=== PATIENT | female | born 1995 | race Caucasian/White ===

== ENCOUNTER 2022-06-18 09:14 | Emergency (ER) | payer OTHER, MEDICAID, SELFPAY ==
[2022-06-18 09:24] VITALS: BP 115/78; PULSE 76; RESP 16; TEMP 36.3; O2SAT 100; BMI 27.4
--- NOTE | 2022-06-18 09:48 | ED_ITS ---
HPI - General Adult General Chief complaint: Fall/Minor Trauma Stated complaint: Fell hit head, 17 weeks Time Seen by Provider: 06/18/22 09:25 Source: patient Mode of arrival: ambulatory Limitations: no limitations History of Present Illness HPI narrative: 26-year-old female coming in today after suffering from a fall. She got out of her car on the way to work in this morning approximately 1 hour and half ago, she slipped and fell backwards falling on her back and hitting her head on the ground. She states that she got up immediately and went into work. She denies headache, blurry vision, dizziness, difficulty concentrating. She denies nausea or vomiting. No changes in her speech. She does state that her low back is a little sore, but this has not prevented her from doing any of her daily a ctivities. She presents to the ER today because she is about 17 weeks and she wants to make sure that the baby is okay. She has not felt consistent movement of the baby since the beginning of her , she just feels a little movement here in there. This is not changed. She denies any abdominal pain or cramping. No vaginal discharge or bleeding. Related Data Home Medications Medication Instructions Recorded Confirmed escitalopram oxalate 20 mg tablet 40 mg PO DAILY 06/18/22 06/18/22 levothyroxine 75 mcg tablet PO 06/18/22 Allergies Allergy/AdvReac Type Severity Reaction Status Date / Time cephapirin [From Cefadyl] Allergy Verified 06/18/22 09:30 Sulfa (Sulfonamide Allergy Verified 06/18/22 09:30 Antibiotics) Review of Systems Status of ROS: Reports: 10 or more systems reviewed and unremarkable except as noted in History and below Exam Narrative: Exam Narrative: Well-nourished well-developed patient in no acute distress. Alert and oriented. Answers questions appropriately. Mood and affect are appropriate. Thoughts are goal oriented and rational. No tangential or magical thinking noted. Patient speaks in full sentences without needing to catch their breath. GCS is 15. She is breathing and speaking without difficulty. There is no visible bleeding. HEENT: Normocephalic atraumatic. I do not see any evidence of a hematoma, ecchymosis erythema of the scalp. There are no tender spots. No crepitus appreciated. Pupils are equally round reactive to light. Extraocular muscles are intact. Conjunctivae are moist without any icterus noted. Neck is soft without discomfort. She has no tenderness to palpation at the cervical spine. She has full range of motion at the neck with flexion, extension, side way bending and rotation. Cardiovascular: Heart is regular rate and rhythm S1 and S2 are present without any murmurs. Lungs: Clear to auscultation bilaterally no wheezes rhonchi or rales are appreciated. Patient takes deep breaths without any discomfort. Abdomen: Soft and nontender nondistended with normal bowel sounds. No guarding or rebound. Extremities: Bilateral lower extremities are without edema. Skin: Well perfused without any obvious rashes. Back: Has normal appearance. There is no ecchymosis or erythema noted. She has no tenderness to palpation at the thoracic or lumbar spine. No tenderness to palpation of the paraspinal musculature. Const: Vital Signs, click to edit/add: Vital Signs - 24 hr 06/18/22 09:24 Temperature 97.4 F L Pulse Rate [Left P ulse Oximeter] 76 Respiratory Rate 16 Blood Pressure [Le ft Upper Arm] 115/78 Pulse Oximetry 100 Oxygen Delivery Me thod Room Air Course Course Hospital Course: Doppler was done of the fetus, heart rate appreciated at 143 beats per minute. Vital Signs Vital signs: Initial Vital Signs Temperature 97.4 F L 06/18/22 09:24 Temperature Source Temporal Artery Scan 06/18/22 09:24 Pulse Rate 76 06/18/22 09:24 Pulse Rhythm 06/18/22 09:24 Pulse Strength 3+ Normal 06/18/22 09:24 Respiratory Rate 16 06/18/22 09:24 Blood Pressure 115/78 06/18/22 09:24 Blood Pressure Mean 90 06/18/22 09:24 Blood Pressure Position Sitting 06/18/22 09:24 Pulse Oximetry 100 06/18/22 09:24 Oxygen Delivery Method 06/18/22 09:24 Vital Signs Temperature 97.4 F L 06/18/22 09:24 Pulse Rate 76 06/18/22 09:24 Respiratory Rate 16 06/18/22 09:24 Blood Pressure 115/78 06/18/22 09:24 Pulse Oximetry 100 06/18/22 09:24 Oxygen Delivery Method 06/18/22 09:24 Temperature 97.4 F L 06/18/22 09:24 Pulse Rate 76 06/18/22 09:24 Respiratory Rate 16 06/18/22 09:24 Blood Pressure 115/78 06/18/22 09:24 Pulse Oximetry 100 06/18/22 09:24 Oxygen Delivery Method 06/18/22 09:24 Medical Decision Making MDM Narrative Medical decision making narrative: 26-year-old female status post fall with a closed head injury. We discussed options today which would include imaging which I do not recommend patient was agreeable with that. We discussed a 4 hour period of monitoring which at this time I do not feel is necessary since the patient is asymptomatic from a head injury standpoint. Patient felt comfortable going home at this time and had no other concerns. We did discussed reasons for follow-up including slurred speech, dizziness, nausea or vomiting, and altered mental status, abdominal discomfort, cramping or vaginal discharge. she was in agreement. Discharge Plan Discharge Clinical Impression: Closed head injury, , Fall Patient Disposition: Home, Self-Care Condition: Stable Additional Instructions: Follow-up with OBGYN as scheduled. Return to the ER if you develop vomiting, vaginal bleeding, or confusion. Prescriptions: No Action levothyroxine 75 mcg tablet PO escitalopram oxalate 20 mg tablet 40 mg PO DAILY Follow Up/Referrals: Natalee Marquis DO [Primary Care Provider] - Stand Alone Forms: [employer] Info Instructions
== END 2022-06-18 10:12 | disposition home or self-care (01) ==
LOC: ED 10:00
PROVIDERS: Emergency Provider Family Medicine; PCP Family Medicine
DX: S09.90XA Unspecified injury of head, initial encounter (principal); W01.0XXA Fall on same level from slipping, tripping and stumbling without subsequent striking against object, initial encounter; Z3A.17 17 weeks gestation of pregnancy
CPT/HCPCS: 99283; 99284

== ENCOUNTER 2022-09-06 13:18 | Outpatient (CLI) | payer MEDICAID, SELFPAY ==
[2022-09-06] VITALS (16 sets, daily range): BP systolic 100–122; BP diastolic 58–78; PULSE 77–101; TEMP 36.7
[2022-09-06] MEDS: ACETAMINOPHEN 500 MG TABLET 1000 MG PO (14:24)
[2022-09-06 14:29] LABS: Hematocrit 34.5 % (33.0-51.0); Hemoglobin* 11.5 gm/dL (12.0-16.0); Mean Corpuscular HGB Conc 33 gm/dL (32-36); Mean Corpuscular Hemoglobin 32 pg (26-34); Mean Corpuscular Volume 97 fL (80-100); Platelet Count* 218 K/uL (140-440); Red Blood Count 3.55 m/uL (4.00-5.20); White Blood Count* 8.65 K/uL (4.50-11.00)
[2022-09-06 14:41] LABS: Slide Review Reflex No
[2022-09-06 14:48] LABS: Total Protein Urine 16 mg/dL
[2022-09-06 14:50] LABS: Creatinine Urine 25.3 mg/dL
[2022-09-06 15:05] LABS: Aspartate Amino Transferase* 22 U/L (12-35); Creatinine* 0.4 mg/dL (0.5-1.5); Estimated Glomerular Filt Rate 142 ml/min
[2022-09-06 15:06] LABS: Alanine Aminotransferase* 17 U/L (4-35); Blood Urea Nitrogen* 5 mg/dL (5-24)
[2022-09-06] MEDS: BUTALB/ACETAMINOPHEN/CAFFEINE 1 EACH TABLET PO (15:55)
[2022-09-06 16:28] LABS: Appearance Urine Cloudy (Clear); Bilirubin Urine Negative (Negative); Blood Urine Negative (Negative); Color Urine Yellow (Yellow); Glucose Urine Negative (Negative); Ketones Urine Negative (Negative); Leukocyte Esterase Urine 1+ (Negative); Nitrite Urine Negative (Negative); Protein Urine Negative (Negative); Specific Gravity Urine 1.015 (1.000-1.030); Urobilinogen Urine 0.2 (0.2-1.0)
[2022-09-06 16:51] LABS: Bacteria Urine Few; RBC Urine 0-2 (0-2); Squamous Epithelial Cell Urine Many (None-Few)
--- NOTE | 2022-09-06 18:33 | PC.OBNST ---
The provider's electronic signature indicates the NST is reactive/appropriate for gestational age. *Note to provider: If an addendum is required, open the patient's chart and click on the note under the Nurse/Allied Health tab.
== END 2022-09-06 17:45 | disposition home or self-care (01) ==
LOC: OB OUT 13:19 → OB 13:19
PROVIDERS: PCP Family Medicine; Visit Provider Family Medicine
DX: O26.893 Other specified pregnancy related conditions, third trimester (principal); R42 Dizziness and giddiness; R11.2 Nausea with vomiting, unspecified; Z3A.28 28 weeks gestation of pregnancy
CPT/HCPCS: 36415; 59025; 81003; 81015; 82565; 82570; 84156; 84450; 84460; 84520; 85027; 87086; 99213; A9270

== ENCOUNTER 2022-09-17 19:57 | Outpatient (CLI) | payer MEDICAID, SELFPAY ==
[2022-09-17 20:18] VITALS: BP 119/70; PULSE 86; PULSE 90; O2SAT 100
[2022-09-17 20:43] LABS: Appearance Urine Slightly Cloudy (Clear); Bilirubin Urine Negative (Negative); Blood Urine Negative (Negative); Color Urine Yellow (Yellow); Glucose Urine Negative (Negative); Ketones Urine Negative (Negative); Leukocyte Esterase Urine Negative (Negative); Nitrite Urine Negative (Negative); Protein Urine Negative (Negative); Specific Gravity Urine 1.015 (1.000-1.030); Urobilinogen Urine 0.2 (0.2-1.0)
[2022-09-17 20:52] LABS: RBC Urine 0-2 (0-2); WBC Urine 0-2 (0-5)
[2022-09-17 21:41] LABS: Amnisure Rom* Negative
[2022-09-17 22:01] LABS: Clue Cells No Clue Cells Seen (None Seen); Trichomonas No Trichomonas Seen (None Seen); Yeast No Yeast Seen (None Seen)
--- NOTE | 2022-09-17 22:13 | PC.OBNST ---
NST Note NST Note Start: 09/17/22 20:01 Freq: ONCE Status: Active Protocol: Document 09/17/22 20:28 ALEC (Rec: 09/17/22 22:13 ALEC [id number]) NST Note 4 Para (# of births) 2 EDC 11/27/22 Gestational Age In Weeks & Days 29 Weeks & 6 Days Patient Presented with Complaint(s) of Contractions/cramping,Leaking fluid Appropriate for Gestational Age Yes RN Lali Colin, KELBY Date 09/17/22 Appropriate for Gestational Age Yes KELBY Chilel RN Date 09/17/22 OB NST charge Yes Complete NST Note via Write Note Yes The provider's electronic signature indicates the NST is reactive/appropriate for gestational age. *Note to provider: If an addendum is required, open the patient's chart and click on the note under the Nurse/Allied Health tab.
== END 2022-09-17 22:12 | disposition home or self-care (01) ==
LOC: OB OUT 19:57 → OB 20:09
PROVIDERS: PCP Family Medicine; Visit Provider Family Medicine
DX: O47.03 False labor before 37 completed weeks of gestation, third trimester (principal); Z3A.29 29 weeks gestation of pregnancy
CPT/HCPCS: 59025; 81003; 81015; 84112; 87210; 99213

== ENCOUNTER 2022-11-05 23:04 | Outpatient (CLI) | payer MEDICAID, SELFPAY ==
[2022-11-05 23:15] VITALS: PULSE 90; O2SAT 100
[2022-11-05 23:27] VITALS: BP 119/71; PULSE 86; RESP 16; TEMP 37.3
[2022-11-06 00:15] LABS: Amnisure Rom* Negative
--- NOTE | 2022-12-18 16:44 | PC.OBNST ---
NST Note NST Note Start: 11/05/22 23:22 Freq: ONCE Status: Discharge Protocol: Document 11/06/22 00:30 CESAR (Rec: 11/06/22 01:36 CESAR [id number]) NST Note 4 Para (# of births) 2 EDC 11/27/22 Gestational Age In Weeks & Days 37 Weeks & 0 Days Patient Presented with Complaint(s) of Contractions/cramping,Leaking fluid If Pain, describe location lower abdominal pain wrapping around to low back. Reactive Yes RN Fransisco Ruiz RN Date 11/06/22 Reactive Yes KELBY Price RN Date 11/06/22 OB NST charge Yes Complete NST Note via Write Note Yes The provider's electronic signature indicates the NST is reactive/appropriate for gestational age. *Note to provider: If an addendum is required, open the patient's chart and click on the note under the Nurse/Allied Health tab.
== END 2022-11-06 00:45 | disposition home or self-care (01) ==
LOC: OB OUT 23:05 → OB 23:05
PROVIDERS: PCP Family Medicine; Visit Provider Family Medicine
DX: O47.1 False labor at or after 37 completed weeks of gestation (principal); Z3A.37 37 weeks gestation of pregnancy
CPT/HCPCS: 59025; 84112; 99213

== ENCOUNTER 2022-11-11 19:33 | Outpatient (CLI) | payer MEDICAID, SELFPAY ==
[2022-11-11 19:49] VITALS: BP 120/77; PULSE 86; PULSE 96; TEMP 36.5; O2SAT 99
[2022-11-11 20:44] LABS: Amnisure Rom* Negative
[2022-11-11] MEDS: ONDANSETRON 2 MG/ML inj 4 MG IVP (20:46)
[2022-11-11] MEDS: ACETAMINOPHEN 500 MG TABLET 1000 MG PO (20:46)
[2022-11-11] MEDS: LACTATED RINGERS 1000 ML 1,000 ML 125 ML IV (20:47)
--- NOTE | 2022-11-11 22:02 | PC.OBNST ---
NST Note NST Note Start: 11/11/22 19:40 Freq: ONCE Status: Active Protocol: Document 11/11/22 21:59 AMINAH (Rec: 11/11/22 22:01 AMINAH [id number]) NST Note 4 Para (# of births) 2 EDC 11/27/22 Gestational Age In Weeks & Days 37 Weeks & 5 Days Patient Presented with Complaint(s) of Leaking fluid,Decreased movement,Nausea and vomiting, Headache Other Complaints Patient presents with complaints of headache, nausea , lightheadedness and decreased movement that started today. Also reports palm sized wetness in her underwear when arriving home from work. Reactive Yes Appropriate for Gestational Age Yes KELBY Marr RN Date 11/11/22 Reactive Yes Appropriate for Gestational Age Yes KELBY Conner RN Date 11/11/22 OB NST charge Yes Complete NST Note via Write Note Yes The provider's electronic signature indicates the NST is reactive/appropriate for gestational age. *Note to provider: If an addendum is required, open the patient's chart and click on the note under the Nurse/Allied Health tab.
== END 2022-11-11 22:43 | disposition home or self-care (01) ==
LOC: OB OUT 19:33 → OB 19:35
PROVIDERS: PCP Family Medicine; Visit Provider Family Medicine
DX: O47.1 False labor at or after 37 completed weeks of gestation (principal); Z3A.37 37 weeks gestation of pregnancy
CPT/HCPCS: 59025; 84112; 87210; 99213; A9270; J2405; J7120

== ENCOUNTER 2022-11-22 05:19 | Inpatient (IN) | payer MEDICAID, SELFPAY ==
[2022-11-22] VITALS (29 sets, daily range): BP systolic 99–130; BP diastolic 07–83; PULSE 66–79; RESP 14–18; TEMP 36.6–37.1; O2SAT 97–100; BMI 28.5
[2022-11-22] MEDS: LACTATED RINGERS 1000 ML 1,000 ML IV ×2 (06:21→07:48)
[2022-11-22 06:43] LABS: Hemoglobin* 12.2 gm/dL (12.0-16.0)
[2022-11-22] MEDS: CLINDAMYCIN 900 MG/50 ML-D5W IVPB (07:39)
[2022-11-22] MEDS: KETOROLAC 30 MG/ML inj IVP ×3 (09:00→21:08)
--- NOTE | 2022-11-22 09:19 | PM.OBPRCCS ---
Procedure Date of procedure: 11/22/22 Pre-op diagnosis: 39 2/7 weeks, h/o x2, undersired fertility Post-op diagnosis: same Procedure Done: only Will [facility] bill your pro fee for this procedure?: Yes Blood Loss Measurement Type: QBL (338 mL) Bakri Used: No Surgeon: Zelda Casillas MD Anesthesia type: Spinal Findings: Extensive scar tissue involving Corina's fascia, fasica, rectus muscles, peritoneum, omentum and bladder Window in the lower uterine segment through which the amniotic membranes could be visualized, meconium-stained amniotic fluid, live-born male infant, cephalic presentation with nuchal cord x1, normal uterus, fallopian tubes and ovaries bilaterally. Procedure Description: After obtaining informed consent, the patient was taken to the operating room where spinal anesthesia was obtained and found to be adequate. She was prepared and draped in the normal sterile fashion in the dorsal supine position with a leftward tilt. A Pfannenstiel skin incision was made with a scalpel along the line of the patient's previous Pfannenstiel scar. This incision was carried down to the underlying layer of fascia with the Bovie. The fascia was incised in the midline and the incision extended laterally. The superior and inferior aspects of the fascial incision were grasped with Mane clamps, elevated and the underlying rectus muscles dissected off sharply and with electrocautery. This dissection took an increased amount of time given the dense adhesions. The rectus muscles were then in the midline. The adhesions between the bladder and lower uterine segment were taken down sharply with Metzenbaum scissors. The John O retractor was then placed into the incision. The extremely thin lower uterine segment was then incised in a transverse fashion with the scalpel. Upon entry into the uterus, membranes bulged, and then were ruptured with a pickups. Meconium-stained amniotic fluid was noted. The uterine incision was extended laterally with blunt finger fractionation. The 's head was delivered atraumatically, followed by the remainder of the infant's body. The nose and mouth were suctioned with the bulb suction. The cord was doubly clamped and cut, and the was handed off the field for evaluation. The placenta was delivered spontaneously with umbilical cord traction and fundal massage. The uterus was cleared of all clots and debris. The uterine incision was reapproximated in a running locking fashion with a 0 chromic suture. There was a 1.5 cm inferior extension in the midline of the hysterotomy incision that was reapproximated in a running locking fashion separately from the transverse closure. Because the lower uterine segment was so thin, a 2nd imbricating layer was not done. The uterus was then exteriorized. Both fallopian tubes were identified to their fimbrial ends. Attention was 1st turned to the left fallopian tube which was elevated in its midsection with a Ashley clamp, and excised completely using the hand-held LigaSure device. Excellent hemostasis was visualized. Attention was then turned to the right fallopian tube, which was isolated, elevated with a Quinault clamp, and excised in a similar fashion. Excellent hemostasis was visualized. The uterus was returned to the abdomen. The gutters were irrigated and suctioned. All instruments and retractors were removed. There was some omental adhesions to the anterior peritoneum which were taken down with electrocautery where appropriate and suture ligated with 0 Vicryl where needed. The anterior peritoneum was reapproximated in a running fashion with a 3-0 Vicryl suture. The subfascial tissues were carefully inspected and hemostasis assured. The fascia was reapproximated in a running fashion with a looped 0 Maxon suture. The subcutaneous tissues were copiously irrigated. Hemostasis was assured. The skin was closed in a subcuticular fashion with 4-0 Vicryl. LiquiBand and dressing were applied. The patient tolerated the procedure well. Sponge, lap, needle, and instrument counts were reported as correct x2. The patient was taken to the recovery room, awake, and in stable condition. She did receive IV clindamycin and gentamicin preoperatively. A TAP block was administered by the anesthesiologist at the conclusion the procedure. Complications: None. Condition: stable Disposition: floor [place] Infant total score - 1 minute: 7 total score - 5 minute: 8 OB Delivery Proc Additional Procedures Tubal Ligation at the time of : Yes (Bilateral salpingectomies)
--- NOTE | 2022-11-22 09:35 | W.ANESCHARGE ---
Anesthesia Charges Start Date/Time Anesthesia Start Date: 11/22/22 Anesthesia Start Time: 07:30 Stop Date/Time Anesthesia Stop Date: 11/22/22 Anesthesia Stop Time: 09:30
--- NOTE | 2022-11-22 09:37 | W.ANESCHARGE ---
Anesthesia Charges Start Date/Time Anesthesia Start Date: 11/22/22 Anesthesia Start Time: 07:30 Stop Date/Time Anesthesia Stop Date: 11/22/22 Anesthesia Stop Time: 09:30
--- NOTE | 2022-11-22 09:38 | P.NB_ITS ---
Nerve Block Nerve Block Time Seen by Provider: 09: Date Seen: 11/22/22 Type of block requested by surgeon for post-operative analgesia: TAP Side: bilateral Time out performed: Yes Verification of patient name: Yes Verification of date of : Yes Site marking: site marked Name of person performing procedure: Wander Continuous monitoring Was continuous monitoring of O2 sat, B/P, playground monitor, recorded every 15 minutes?: Yes Procedure Checklist: sterile prep, needles and gloves Ultrasound guided. Images saved: Yes Medications given in 5ml increments after negative aspiration: Marcaine %: 0.25 mL: 30 Needle gauge: 20 and Exparel mL: 10 Patient tolerated procedure well: Yes Additional comments: Needle noted adjacent to nerve Block Charges Block Charge (with Pro Fee): TAP Bilateral Use of Ultrasound Machine for Block: Yes- US Guidance/pain block
[2022-11-22] MEDS: LACTATED RINGERS 1000 ML 1,000 ML 125 ML IV (12:56)
[2022-11-22] MEDS: ACYCLOVIR 200 MG CAPSULE 400 MG PO (21:08)
[2022-11-23] VITALS (10 sets, daily range): BP systolic 104–110; BP diastolic 58–73; PULSE 76–100; RESP 16–18; TEMP 36.6–36.8; O2SAT 94–98
[2022-11-23] MEDS: KETOROLAC 30 MG/ML inj IVP ×3 (03:05→14:36)
[2022-11-23] MEDS: LANOLIN CREAM 1 APPLIC TOPICAL (03:05)
[2022-11-23 07:29] LABS: Hemoglobin* 10.7 gm/dL (12.0-16.0)
--- NOTE | 2022-11-23 08:10 | PM.OBDSVD1 ---
DS: Providers Provider Date Seen: 11/23/22 Date of admission: 11/22/22 05:19 Primary care physician: Natalee Marquis DO Admitting Clinician: Zelda Sim MD Attending Physician on discharge: Zelda Sim MD Date of Discharge: 11/23/22 DS: Diagnosis Discharge Diagnosis (1) Lactating mother: Status: Acute (2) care following delivery: Status: Acute (3) S/P tubal ligation: Status: Acute Exam Narrative: Exam Narrative: GENERAL APPEARANCE:? normal affect, alert, no distress? MOOD:? appropriate? CHEST:? clear to auscultation and percussion? HEART:? regular rate and rhythm? ABDOMEN:? soft, non-tender the uterine fundus is 2 cm Below Umbilicus, Midline and is appropriate for the stage of recovery. Incision is dressed. Dressing is clean dry and intact. EXTREMITIES:? normal and no edema? Patient has no complaints? No active bleeding?? Doing well? She is requesting discharge home.? Const: Vital Signs, click to edit/add: Vital Signs - 24 hr 11/22/22 09:29 11/22/22 09:34 11/22/22 09:40 Temperature Pulse Rate 71 68 75 Pulse Rate [Pulse Oximeter] Respiratory Rate 16 16 16 Blood Pressure 117/83 114/83 115/67 Blood Pressure [Le ft Arm] Pulse Oximetry 97 98 97 Oxygen Delivery Me thod Room Air 11/22/22 09:45 11/22/22 09:50 11/22/22 09:54 Temperature 97.9 F Pulse Rate 73 71 76 Pulse Rate [Pulse Oximeter] Respiratory Rate 16 16 16 Blood Pressure 115/74 118/73 107/07 L Blood Pressure [Le ft Arm] Pulse Oximetry 98 97 97 Oxygen Delivery Me thod Room Air 11/22/22 09:59 11/22/22 10:15 11/22/22 10:30 Temperature 97.9 F 97.9 F Pulse Rate 77 Pulse Rate [Pulse Oximeter] 70 72 Respiratory Rate 16 16 16 Blood Pressure 110/75 Blood Pressure [Le ft Arm] 112/78 107/71 Pulse Oximetry 97 98 99 Oxygen Delivery Me thod Room Air 11/22/22 10:45 11/22/22 11:00 11/22/22 11:15 Temperature Pulse Rate Pulse Rate [Pulse Oximeter] 77 74 74 Respiratory Rate 16 16 16 Blood Pressure Blood Pressure [Le ft Arm] 118/68 110/74 130/69 Pulse Oximetry 99 98 98 Oxygen Delivery Me thod 11/22/22 11:30 11/22/22 11:45 11/22/22 12:00 Temperature Pulse Rate Pulse Rate [Pulse Oximeter] 77 77 79 Respiratory Rate 16 16 16 Blood Pressure Blood Pressure [Le ft Arm] 110/72 105/70 104/68 Pulse Oximetry [address] 11/22/22 12:15 11/22/22 13:06 11/22/22 14:06 Temperature Pulse Rate Pulse Rate [Pulse Oximeter] 75 Respiratory Rate 16 16 16 Blood Pressure Blood Pressure [Le ft Arm] 99/64 Pulse Oximetry [address] thod 11/22/22 15:00 11/22/22 16:15 11/22/22 16:15 Temperature 97.8 F Pulse Rate Pulse Rate [Pulse Oximeter] 66 Respiratory Rate 18 14 14 Blood Pressure Blood Pressure [Le ft Arm] 100/63 Pulse Oximetry 97 [facility] 11/22/22 17:00 11/22/22 18:00 11/22/22 19:06 Temperature Pulse Rate Pulse Rate [Pulse Oximeter] Respiratory Rate 16 16 18 Blood Pressure Blood Pressure [Le ft Arm] Pulse Oximetry Oxygen Delivery Ct thod 11/22/22 19:33 11/22/22 20:06 11/22/22 21:06 Temperature 98.2 F Pulse Rate Pulse Rate [Pulse Oximeter] 71 Respiratory Rate 16 16 16 Blood Pressure Blood Pressure [Le ft Arm] 106/72 Pulse Oximetry [facility] 11/22/22 22:06 11/22/22 23:06 11/23/22 00:06 Temperature Pulse Rate Pulse Rate [Pulse Oximeter] Respiratory Rate 16 16 16 Blood Pressure Blood Pressure [Le ft Arm] Pulse Oximetry Oxygen Delivery Ct thod 11/23/22 00:31 11/23/22 01:06 11/23/22 02:06 Temperature 97.9 F Pulse Rate Pulse Rate [Pulse Oximeter] 100 Respiratory Rate 18 18 18 Blood Pressure Blood Pressure [Le ft Arm] 109/58 L Pulse Oximetry Oxygen Delivery Ct thod Room Air 11/23/22 03:06 11/23/22 04:05 11/23/22 04:05 Temperature 98.3 F Pulse Rate Pulse Rate [Pulse Oximeter] 100 Respiratory Rate 18 18 18 Blood Pressure Blood Pressure [Le ft Arm] 104/72 Pulse Oximetry 97 Oxygen Delivery Me thod Room Air 11/23/22 05:06 11/23/22 06:06 11/23/22 07:06 Temperature Pulse Rate Pulse Rate [Pulse Oximeter] Respiratory Rate 18 18 18 Blood Pressure Blood Pressure [Le ft Arm] Pulse Oximetry Oxygen Delivery Me thod 11/23/22 07:54 Temperature 98.0 F Pulse Rate Pulse Rate [Pulse Oximeter] 76 Respiratory Rate 18 Blood Pressure Blood Pressure [Le ft Arm] 110/73 Pulse Oximetry 98 Oxygen Delivery Me thod Room Air Documenting provider has reviewed patient's vital signs: yes OB - DS: Summary Hospital Course Hospital Course: Patient is a 26year old, G 4 now P 3? admitted on 11/22/22 at 39 Weeks, 1 Days gestation for repeat section.? She had an uncomplicated delivery.? She delivered a viable male .? She is breast feeding and reports things are well.? the patient has done well.? Her pain is well controlled with current medications.? She has no new complaints.? Vitals have been stable. She has remained afebrile. She is voiding without difficulty. She is passing gas and has not had a bowel movement. She is ambulating and denies any dizziness. She had a tubal ligation during this hospitalization for control.?She is requesting to discharge today. Discussed risks of an early discharge. she has been ambulating without difficulty and feels that her pain is well controlled. Discussed effects of tap block and when to expect the effect to wear off. Would still like to discharge. Declines narcotic pain medications for discharge and states that se has not used them after her past deliveries. Discussed an incision check at 1 week and she is agreeable to this. Peripartum Data delivery method: Repeat Section Procedures: Procedures Operation Date: 11/22/22 07:15 Actual Procedure Side Surgeon p Repeat Section, Salpingectomy Bilateral Zelda Sim MD complications: none Infant Gender: Male Discharge Plan: Home Status at Discharge Functional status at discharge: independent ambulation Overall status at discharge: patient is progressing back to baseline Time Spent with Patient Time attestation: Total time spent providing and/or coordinating discharge services: Discharge Plan Discharge Disposition: Home, Self-Care Date of Admission: 11/22/22 05:19 Attending Provider on Discharge: Fadia Lopez Primary Care Provider: Natalee Marquis Condition: Stable Anticipated Discharge Date/Time: 11/23/22 14:00 Discharge Medications: New docusate sodium 100 mg Capsule 100 mg PO DAILY Qty: 90 0RF Rx Instructions: Take 1-2 tablets daily as needed for constipation. ibuprofen 600 mg Tablet 600 mg PO Q6H PRN (Reason: Pain) Qty: 90 0RF Continued DHA 200 mg capsule PO cholecalciferol (vitamin D3) 25 mcg (1,000 unit) capsule 25 mcg PO QDAY levothyroxine 75 mcg tablet 75 mcg PO DAILY Patient Comments: 75mg 3x per week, 150mg 4x per week escitalopram oxalate 20 mg tablet 40 mg PO DAILY Discontinued acyclovir 400 mg tablet 400 mg PO BID No Action valacyclovir 1 gram tablet 1,000 mg PO DAILY Hold Instructions: patient taking different medication in place of this Discharge Orders: Discharge Order (Routine); Ordered 11/23/22 Ordered By: Fadia Lopez Patient Education: OB /Breast Feeding Additional Instructions: Discharge instructions were reviewed with the patient including signs and symptoms of infection and home going medications? ?? Activity restrictions:? Lifting Restrictions: 20 pounds for 6 weeks? No high-impact or core exercises for 6 weeks.?? No not submerge incision under water X 2 weeks?? Nothing vaginally for 6 weeks: no tampons or intercourse? Do not drive while taking narcotic pain medication(s)? Off Work or School for 8 weeks? ?? Symptoms to report to doctor:? -Bleeding that saturates more than one pad per hour? -Passing clots larger than the size of a golf ball? -Pain not relieved by prescribed medication? -Fever above 100.4 degrees Fahrenheit? -A foul vaginal odor? -Difficulty in emotions, mood and functions? -Thoughts of hurting yourself and/or ? -Painful, reddened area in your breast? -Any drainage, redness or tenderness in your IV/epidural site? -Severe headache that doesn't improve after taking medications? -Changes in vision, including temporary loss of vision, blurred vision, and/or light sensitivity? -Upper abdominal pain (usually under ribs on the right side)? -Decrease in urination or painful, frequent urinating? -Chest pain? -Shortness of breath? -Tenderness or pain with redness and/swelling in the calf(s) of your leg? Follow up visits:?? 1. 1 week visit:? incision check.? 2. 2-week visit: discuss feeding/care concerns, review control options and screen for anxiety/depression.? 3. 6-week visit for an annual exam.? ?? consultation services are available to all mothers and babies for the first year after delivery.? To make an appointment, please call [phone].? Activity Level: No Restrictions and Activity as Tolerated Discharge Diet: Regular Follow Up Appointments: Natalee Marquis DO [Primary Care Provider] - [facility] [Provider Group] Forms: [employer] Info Instructions
[2022-11-23] MEDS: LEVOTHYROXINE 75 MCG TABLET PO (08:11)
[2022-11-23] MEDS: DOCUSATE SODIUM 100 MG CAPSULE PO (08:11)
[2022-11-23] MEDS: ACYCLOVIR 200 MG CAPSULE 400 MG PO (08:12)
[2022-11-23] MEDS: ESCITALOPRAM 10 MG TABLET 40 MG PO (08:12)
== END 2022-11-23 15:35 | disposition home or self-care (01) | DRG 784 ==
PROVIDERS: Admitting Provider Obstetrics & Gynecology; PCP Family Medicine; Visit Provider Obstetrics & Gynecology
PROC: 10D00Z1 Extraction of Products of Conception, Low, Open Approach (ICD-10-PCS; CPT 59514; principal; 2022-11-22 07:15)
DX: O34.211 Maternal care for low transverse scar from previous cesarean delivery (principal); O98.32 Other infections with a predominantly sexual mode of transmission complicating childbirth; Z3A.39 39 weeks gestation of pregnancy; Z37.0 Single live birth; Z30.2 Encounter for sterilization; O77.0 Labor and delivery complicated by meconium in amniotic fluid; O99.284 Endocrine, nutritional and metabolic diseases complicating childbirth; E03.9 Hypothyroidism, unspecified; O99.344 Other mental disorders complicating childbirth; F41.9 Anxiety disorder, unspecified; A60.00 Herpesviral infection of urogenital system, unspecified; G89.18 Other acute postprocedural pain
CPT/HCPCS: 01961; 36415; 58611; 64488; 76942; 85018; 86850; 86900; 86901; 88307; A9270; C9290; J0665; J1100; J1580; J1885; J2274; J2371; J2405; J2590; J2765; J3010; J7120; S0077

== ENCOUNTER 2022-12-22 14:41 | Outpatient (CLI) | payer MEDICAID, SELFPAY ==
--- NOTE | 2022-12-22 17:00 | P.LACCB_ITS ---
Consult Note - Mom Date of Visit Date of visit: 12/22/22 public relations consultant: Malini Crooks Visit Code: Visit Patient's Information Phone number: [phone] : 4 Para: 3 Allergies cefprozil [From Cefzil] Allergy (Intermediate, Verified 12/08/22 11:32) Hives Sulfa (Sulfonamide Antibiotics) Allergy (Intermediate, Verified 12/08/22 11:32) Hives Mother's Medical History: genital herpes, hypothyroidism, depression Type of Contraception: TL Delivery Information Delivery type: Repeat Section Weeks Gestation: 39.2 Gestational Age: AGA Weight: 2.875 kg Discharge Weight: 2.74 kg Baby's Information Baby's Age at Visit: 1 month Baby's Provider or Clinic: Dr. Marquis Jaundice: No Reason for Consult Reason for Consult: difficulty latching, concern for fast let-down Past Experience Past Experience: Yes (nursed her two older kids for several months each) Current Frequency of Day Feedings: every hour Frequency of Night Feedings: every 1 - 2 hours Both Breasts: No Suck: not aggressive Latch: fairly wide, has trouble maintaining it Length of Time: about 10 mintues Pumping Pumping: Yes (on occasion, uses a milk pasteurizer more often) Quantity Pumped: up to 4 oz total each time Supplementing EMB Supplement: Yes (baby gets about 2 three oz bottles/24 hours) Baby Elimination Number of Wet Diapers a Day: almost every feeding Number of BM a Day: almost every feeding, yellow and seedy Breast/Nipple Condition Breast Information: WNL Maternal Nipple Condition - Left: Common Nipple Maternal Nipple Condition - Right: Common Nipple Sore Nipples: No Onsite Pre-Feed weight: 3.85 kg Post-Feed weight: 3.911 kg Milk Transferred (mL): 61 Assessments/Interventions Assessments/Interventions: Met with mom and this now one month old ex- term AGA baby for consult. Mom reports nursing has been difficult almost since . He wants to nurse almost every hour during the day and sometimes that frequently overnight. Mom has a forceful let-down and states baby pops off and on the breast, latching then unlatching then re-latching. This goes on for about 10 minutes, then he falls asleep so she doesn't offer the second side. She'll put him down but he wakes up after 10 - 20 minutes and wants to nurse again. She reports he was spitting up a lot about a week ago but this has improved. Baby is happiest when he's upright and seems more uncomfortable when on his side at breast or on his back. She pumps on occasion but does use a milk pasteurizer, getting about 3 oz total during the day. Baby takes a 3 oz bottle 1 - 2 times/24 hours and has no trouble with this. Breasts WNL- symmetrical with rounded lower quadrants, intramammary distance < 1.5 inches. Nipples are everted and don't flatten or retract on compression. No damage noted and mom denies any pain with nursing. Mom was unsure of when baby was last seen by his PCP but thinks it was about two weeks ago for his 2 week WCC. States baby was 6 lbs 5 oz (2863 grams), so using 12/08 as the day of his visit, he's gained 71 grams/day since then. Per mom he has equal ROM when turning his head and she denies any caput/cephalohematoma at delivery. Baby's palate is a little high and short. His upper frenulum appears tight as his lip is difficult to flange. He has a fairly strong suck on a finger, but the tongue only barely extends past the gum line. There's canoeing when the tongue lateralizes to the side and the lower frenulum looks to be a little anterior. Mom latched baby to the right side and the latch was fairly wide, when exaggerat ing pointing her nipple to his nose she was able to get a deeper latch. Baby was not aggressive at the breast and came off crying after a few minutes. She tried a few more times without success to re-latch him so switched to the left side. He latched more deeply on this side, but as her milk began to let-down he started to unlatch and let it spill out of his mouth. No improvement when she hand expressed about .5 oz off or when we tried the reclined position. We tried several positions for about 20 minutes, but when he laid to his side he began to cry and then calmed down when held upright. As mom reported this was not an issue with the bottle, he was given what she pumped and took it with no problem. We then tried a nipple shield and had a little more success in getting him to stay on, but with the letdown he would loosen his latch and a lot of milk would just spill out of his mouth. After about a 40 minute session he transferred 61 ml (not including the 5 ml from the bottle). The issue seems less to be r/t to possible reflux then difficulty maintaining the latch b/c he has none of the above issues when bottle feeding. Plan: 1. Mom will practice nursing with the shield to see if he has an easier time maintaining the latch. Suggested she hand express for a few minutes before nursing and also offer both sides at each feeding in hopes he will give her a little more of a break between feeding sessions. If this goes well, could try to wean from the shield over the weekend. If not, ok to keep using it. 2. OK to continue supplementing 1 - 2 bottle daily. Reviewed paced feeding. 3. Suggested for now mom pump to empty 1 - 2 times/day. 4. Gave an exercise to help him strengthen his suck and teach him to extend his tongue over the gumline. Suggested POC practice this 3 - 5 times/day. 5. Suggested craniosacral therapy or a chiropractor. 6. Will f/u on 11/28 and if no improvement could consider an evaluation from a pediatric dentist or evaluation from PCP for reflux. Meds Home Medications and Allergies Home Medications Medication Instructions Recorded Confirmed Type escitalopram oxalate 20 mg tablet 40 mg PO DAILY 06/18/22 12/08/22 History levothyroxine 75 mcg tablet 75 mcg PO DAILY 06/18/22 12/08/22 History cholecalciferol (vitamin D3) 25 25 mcg PO QDAY 10/08/22 12/08/22 History mcg (1,000 unit) capsule docosahexaenoic acid 200 mg mg PO 10/08/22 12/08/22 History capsule ( DHA) valacyclovir 1 gram tablet 1,000 mg PO DAILY 10/08/22 12/08/22 History Allergies Allergy/AdvReac Type Severity Reaction Status Date / Time cefprozil [From Cefzil] Allergy Intermediate Hives Verified 12/08/22 11:32 Sulfa (Sulfonamide Allergy Intermediate Hives Verified 12/08/22 11:32 Antibiotics)
== END 2022-12-22 14:42 | disposition home or self-care (01) ==
LOC: OB LAC 14:42
PROVIDERS: PCP Family Medicine; Visit Provider Family Medicine
DX: Z39.1 Encounter for care and examination of lactating mother (principal)
CPT/HCPCS: 99211

== ENCOUNTER 2023-02-26 10:16 | Emergency (ER) | payer MEDICAID, SELFPAY ==
[2023-02-26 10:41] VITALS: BP 114/70; PULSE 120; RESP 18; TEMP 37.7; O2SAT 96; BMI 27.4
[2023-02-26 11:13] VITALS: BP 117/74; PULSE 108; RESP 28; O2SAT 95
--- NOTE | 2023-02-26 11:18 | ED.GENADULT ---
HPI - General Adult General Chief complaint: Cough Stated complaint: flu like symptoms Time Seen by Provider: 02/26/23 11:06 History of Present Illness HPI narrative: This 27-year-old female is seen here with her son who also has some respiratory symptoms. She reports cough, body aches and pains, fever, and congestion since yesterday. She arrives with a temperature of 100? F. Oximetry is at 95-96% on room air. She does have slight tachycardia. Related Data Home Medications Medication Instructions Recorded Confirmed escitalopram oxalate 20 mg tablet 40 mg PO DAILY 06/18/22 02/26/23 levothyroxine 75 mcg tablet 75 mcg PO DAILY 06/18/22 02/26/23 cholecalciferol (vitamin D3) 25 25 mcg PO QDAY 10/08/22 12/08/22 mcg (1,000 unit) capsule docosahexaenoic acid 200 mg mg PO 10/08/22 12/08/22 capsule ( DHA) valacyclovir 1 gram tablet 1,000 mg PO DAILY 10/08/22 12/08/22 Previous Rx's Medication Instructions Recorded docusate sodium 100 mg capsule 100 mg PO DAILY #90 caps 11/23/22 ibuprofen 600 mg tablet 600 mg PO Q6H PRN Pain #90 tabs 11/23/22 Allergies Allergy/AdvReac Type Severity Reaction Status Date / Time cefprozil [From Cefzil] Allergy Intermediate Hives Verified 12/08/22 11:32 Sulfa (Sulfonamide Allergy Intermediate Hives Verified 12/08/22 11:32 Antibiotics) Review of Systems Status of ROS: Reports: 10 or more systems reviewed and unremarkable except as noted in History and below Narrative: Constitutional: No weight gain or loss. She reports a fever. Eyes: No discharge. No vision changes. HENT: No sore throat, no ear pain. Cardiovascular: No chest pain, no palpitations. Respiratory: No shortness of breath, no wheezes. Gastrointestinal: No abdominal pain, no vomiting, no diarrhea. Genitourinary: No dysuria, no hematuria. Musculoskeletal: Normal range of motion. Skin: No rashes, no pruritis. Neurological: No dizziness, weakness, sensory change, speech change. Endo/Heme/Allergies: No bruising or bleeding. No polydipsia. Pysch: no suicidality, no anxiety, no insomnia. All other systems reviewed and are negative. [facility] Surgical History (Updated 12/08/22 @ 11:58 by Siria Emerson PA-C) History of placement of ear tubes ?Z96.22 - Myringotomy tube(s) status (ICD-10) History of 2 sections ?Z98.891 - History of uterine scar from previous surgery (ICD-10) Social History What is your current living situation?: I presently have a place to live Problems where you live: no known problems In the past 12 months, utilities in danger of being shut off: no In past 12 months, lack of transportation kept you from medical appts, meetings, work, or getting things needed for daily living: no In the past 12 mos, have been you worried that your food would run out before you had money to buy more?: never true In the past 12 mos, the food you bought just didn't last and you didn't have money to buy more?: never true Smoking Status: Never smoker Do you use any of these nicotine containing products: None Second hand tobacco smoke exposure: No How often do you have a drink containing alcohol: never How often do you have six or more drinks on one occasion: Never AUDIT-C Alcohol total score: 0 Non-prescribed substance use: denies use Within the last year, have you been humiliated or emotionally abused in other ways by your partner or ex-partner: no Within the last year, have you been afraid of your partner or ex-partner: no Within the last year, have you been raped or forced to have any kind of sexual activity by your partner or ex-partner: no Within the last year, have you been kicked, hit, slapped, or otherwise physically hurt by your partner or ex-partner: no HARK total score: 0 How often does anyone, including family, friends and others, physically hurt you: never How often does anyone, including family, friends and others, insult or talk down to you: never How often does anyone, including family, friends and others, threaten you with harm: never How often does anyone, including family, friends and others, scream or curse at you: never Little interest or pleasure in doing things: not at all Feeling down, depressed, or hopeless: not at all service: No Exam Narrative: Exam Narrative: Constitutional: Well-developed, well-nourished, no acute distress. HEENT: Normocephalic, atraumatic. Neck: Normal range of motion. Nontender. Supple. Heart: Regular. No murmurs. Borderline tachycardia. Intact distal pulses. Lungs: Clear to auscultation. No chest discomfort. No wheezes, rhonchi, or rales. Abdomen: Normal bowel sounds. Nontender. No rebound tenderness. Genitalia: Deferred. Back: No midline tenderness. Normal range of motion. Extremities: Normal range of motion. No injury. Skin: Intact. No rash. Warm. No erythema or pallor. Neurologic: No altered sensation. No weakness. Alert and oriented. Psychiatric: No suicidality. No anxiety or depression. No insomnia. Nursing notes and vitals signs are reviewed. Const: Vital Signs, click to edit/add: Vital Signs - 24 hr 02/26/23 10:41 02/26/23 11:13 Temperature 100 F H Pulse Rate [Pulse Oximeter] 120 H 108 H Respiratory Rate 18 28 H Blood Pressure [Ri ght Upper Arm] 114/70 117/74 Pulse Oximetry 96 95 Oxygen Delivery Me thod Room Air Room Air Course Vital Signs Vital signs: Initial Vital Signs Temperature 100 F H 02/26/23 10:41 Temperature Source Temporal Artery Scan 02/26/23 10:41 Pulse Rate 120 H 02/26/23 10:41 Respiratory Rate 18 02/26/23 10:41 Blood Pressure 114/70 02/26/23 10:41 Blood Pressure Mean 84 02/26/23 10:41 Blood Pressure Position Sitting 02/26/23 10:41 Pulse Oximetry 96 02/26/23 10:41 Oxygen Delivery Method Room Air 02/26/23 10:41 Vital Signs Temperature 100 F H 02/26/23 10:41 Pulse Rate 120 H 02/26/23 10:41 Respiratory Rate 18 02/26/23 10:41 Blood Pressure 114/70 02/26/23 10:41 Pulse Oximetry 96 02/26/23 10:41 Oxygen Delivery Method Room Air 02/26/23 10:41 Temperature 100 F H 02/26/23 10:41 Pulse Rate 108 H 02/26/23 11:13 Respiratory Rate 28 H 02/26/23 11:13 Blood Pressure 117/74 02/26/23 11:13 Pulse Oximetry 95 02/26/23 11:13 Oxygen Delivery Method Room Air 02/26/23 11:13 Medical Decision Making MDM Narrative Medical decision making narrative: This patient comes in with upper respiratory symptoms as described above. Nasopharyngeal testing returns positive for COVID. The patient does have reassuring vital signs and exam. I recommended using [id number] medicines as needed and directed and instructed her to return if worsening symptoms happen. Lab Data Labs: Lab Results 02/26/23 Range/Units 10:47 SARS-CoV-2 (PCR) POSITIVE SARS-CoV-2 A (Negative) Influenza Type A (PCR) Negative PCR FLU A (Negative) Influenza Type B (PCR) Negative PCR FLU B (Negative) RSV (PCR) Negative PCR RSV (Negative) Discharge Plan Discharge Clinical Impression: COVID-19 Patient Disposition: Home, Self-Care Condition: Stable Additional Instructions: Use [id number] medicines as needed and directed. Follow up with MD return if worsening. Prescriptions: No Action valacyclovir 1 gram tablet 1,000 mg PO DAILY Hold Instructions: patient taking different medication in place of this DHA 200 mg capsule PO cholecalciferol (vitamin D3) 25 mcg (1,000 unit) capsule 25 mcg PO QDAY levothyroxine 75 mcg tablet 75 mcg PO DAILY Patient Comments: 75mg 3x per week, 150mg 4x per week escitalopram oxalate 20 mg tablet 40 mg PO DAILY docusate sodium 100 mg Capsule 100 mg PO DAILY Qty: 90 0RF Rx Instructions: Take 1-2 tablets daily as needed for constipation. ibuprofen 600 mg Tablet 600 mg PO Q6H PRN (Reason: Pain) Qty: 90 0RF Follow Up/Referrals: Natalee Marquis DO [Primary Care Provider] - Stand Alone Forms: MyHealth Info Instructions
[2023-02-26 11:33] LABS: PCR FLU A Negative PCR FLU A (Negative); PCR FLU B Negative PCR FLU B (Negative); PCR RSV Negative PCR RSV (Negative)
--- OUTSIDE RECORDS SUMMARY | 2023-02-26 11:33 | XMS_ITS | Continuity of Care Document ---
Author Name Unknown Organization [facility] Address [address] [address] [place] [address] Phone Care Team Providers Care Pest Control Worker Helper Name Role Phone Cody Hanson MD Unavailable Unavailable Allergies, Adverse Reactions, Alerts Substance Reaction Status Criticality cefprozil HivesHives Active No Information Sulfa (Sulfonamide Antibiotics) Active No Information Medications Medication Instructions Dosage Effective Dates (start - stop) Status Comments levothyroxine 50 mcg tablet take 1 tablet by oral route every day 50 MCG - Active fluoxetine 40 mg capsule take 2 capsule by oral route every day 80 MG - Active valacyclovir 500 mg tablet take 1 tablet by oral route 2 times every day 500 MG - Active Procedures Procedure Date Offic Cons New/estab Mod Advance Directives Directive Yes / No Effective Date File Name No Information Encounters Encounter Description Practice Location Reason(s) For Visit Diagnoses Date Provider Providers Copied on Encounter [facility], [address] [address], [place], [place], [id number], [place] tel:[phone] [facility] No Information Margie Ross. [address] [place] [address], [place], [place], [id number], [place]. tel:[phone] [facility], [address] [address], [place], [place], [id number], [place] tel:[phone] [facility] Epigastric pain Yen Perez. [address] [facility] [address], [place], [place], [id number], [place]. tel:[phone] Offic Cons New/estab Mod [facility], [address] [address], [place], [place], [id number], [place] tel:[phone] [facility] GI Symptoms or Concerns (chief complaint) Nausea Yen Perez. [address] [facility], [place], [place], [id number], [place]. tel:[phone] Referring Provider: Natalee Marquis DO, [address] [place], [address]. tel:[phone] [facility], [address] [address], [place], [place], [id number], [place] tel:[phone] [facility] No Information Margie Ross. [address] [facility], [place], [place], [id number], [place]. tel:[phone] Family History Family Member Type Diagnosis Age At Onset Father Problem (finding) Anxiety Daughter Problem (finding) Alive and well Sister Problem (finding) Alive and well Father Problem (finding) Alive and well Father Problem (finding) Depression Mother Problem (finding) Depression Mother Problem (finding) anxiety Son Problem (finding) Alive and well Brother Problem (finding) Alive and well Brother Problem (finding) Autism Mother Problem (finding) Alive and well Immunizations Vaccine Date Status Comments tetanus toxoid, reduced diphtheria toxoid, and acellular pertussis vaccine, adsorbed administered Note: [facility] b i-directional interface ; Source: Other Registry Afluria Qd administered Note: [facility] bi-directional interface ; Source: Other Registry Afluria Qd administered Note: M [facility] bi-directional interface ; Source: Other Registry tetanus toxoid, reduced diphtheria toxoid, and acellular pertussis vaccine, adsorbed administered Note: [facility] b i-directional interface ; Source: Other Registry Havrix pediatric administered Note: [facility] bi-directional interface ; Source: Other Registry meningococcal oligosaccharid e (groups A, C, Y and W-135) diphtheria toxoid conjugate vaccine (MCV4O) administered Note: [facility] bi-direct ional interface ; Source: Other Registry Havrix pediatric administered Note: [facility] bi-directional interface ; Source: Other Registry Afluria Qd administered Note: M [facility] bi-directional interface ; Source: Other Registry human papilloma virus vaccin e, quadrivalent administered Note: [facility] bi-direct ional interface ; Source: Other Registry tetanus toxoid, reduced diphtheria toxoid, and acellular pertussis vaccine, adsorbed administered Note: [facility] b i-directional interface ; Source: Other Registry human papilloma virus vaccin e, quadrivalent administered Note: [facility] bi-direct ional interface ; Source: Other Registry tetanus toxoid, reduced diphtheria toxoid, and acellular pertussis vaccine, adsorbed administered Note: [facility] b i-directional interface ; Source: Other Registry human papilloma virus vaccin e, quadrivalent administered Note: [facility] bi-direct ional interface ; Source: Other Registry Influenza, seasonal, injecta ble, preservative free administered Note: [facility] bi-direct ional interface ; Source: Other Registry Novel [id number], all formulations administered Note: [facility] bi-direct ional interface ; Source: Other Registry varicella virus vaccine administered Note : [facility] bi-directional interface ; Source: Other Registry tetanus toxoid, reduced diphtheria toxoid, and acellular pertussis vaccine, adsorbed administered Note: [facility] b i-directional interface ; Source: Other Registry measles, mumps and rubella v irus vaccine administered Note: [facility] bi-direct ional interface ; Source: Other Registry poliovirus vaccine, inactivated administe red Note: [facility] bi- directional interface ; Source: Other Registry hepatitis B vaccine, unspeci fied formulation administered Note: [facility] bi-direct ional interface ; Source: Other Registry measles, mumps and rubella v irus vaccine administered Note: [facility] bi-direct ional interface ; Source: Other Registry poliovirus vaccine, inactivated administe red Note: [facility] bi- directional interface ; Source: Other Registry diphtheria, tetanus toxoids and acellular pertussis vaccine administered Note: [facility] b i-directional interface ; Source: Other Registry poliovirus vaccine, inactivated administe red Note: [facility] bi- directional interface ; Source: Other Registry Haemophilus influenzae type b vaccine, PRP-T conjugate administered Note: [facility] bi-d irectional interface ; Source: Other Registry diphtheria, tetanus toxoids and acellular pertussis vaccine administered Note: [facility] b i-directional interface ; Source: Other Registry varicella virus vaccine administered Note : [facility] bi-directional interface ; Source: Other Registry measles, mumps and rubella v irus vaccine administered Note: [facility] bi-direct ional interface ; Source: Other Registry hepatitis B vaccine, unspeci fied formulation administered Note: [facility] bi-direct ional interface ; Source: Other Registry Haemophilus influenzae type b vaccine, PRP-T conjugate administered Note: [facility] bi-d irectional interface ; Source: Other Registry hepatitis B vaccine, unspeci fied formulation administered Note: [facility] bi-direct ional interface ; Source: Other Registry diphtheria, tetanus toxoids and pertussis vaccine administered Note: [facility] bi-direct ional interface ; Source: Other Registry poliovirus vaccine, inactivated administe red Note: [facility] bi- directional interface ; Source: Other Registry Haemophilus influenzae type b vaccine, PRP-T conjugate administered Note: [facility] bi-d irectional interface ; Source: Other Registry poliovirus vaccine, inactivated administe red Note: [facility] bi- directional interface ; Source: Other Registry Haemophilus influenzae type b vaccine, PRP-T conjugate administered Note: [facility] bi-d irectional interface ; Source: Other Registry diphtheria, tetanus toxoids and pertussis vaccine administered Note: [facility] bi-direct ional interface ; Source: Other Registry hepatitis B vaccine, unspeci fied formulation administered Note: [facility] bi-direct ional interface ; Source: Other Registry Payers Payer name Insurance type Covered constitution party ID Authoriza tion(s) No Information Social History Type Description Quantity Date Captured Comments Sex Female Smoking Status No Information Chief Complaint And Reason For Visit No Information Reason For Referral Reason For Referral No Information Plan Of Treatment Date Type Action Status Referral Ordered: EGD Appointment date/timeframe: 07/09/2021 ordered Referral Ordered: Ultrasound Abdomen Appointment date/timeframe: 03/25/2021 ordered History Of Present Illness Encounter Date Complaint History Of Prese nt Illness GI Symptoms or Concerns This is a very pleasant 25-year-old female presents to the GI clinic sent in consultation by Dr. Marquis regarding nausea that is not responsive to PPI therapy. The patient states that she has had a sensation of nausea after eating any other than taking and water within 5-10 minutes of oral intake. This symptoms started in October of 2020 and has persisted and worsened over that time. She denies any abdominal pain and had only 1 episode of vomiting. In spite of the nausea she has gained 20-25 pounds since that time. She did recently have a 2nd child states that her weight dropped down to her pre weight after the of her daughter. However, her weight has now increased and she is not sure why. The patient states that she has some appetite and that she has not had chest pain or shortness of breath and has not had any trouble swallowing or reflux disease. The patient was tried on a PPI and had no improvement of her symptoms. The patient has regular bowel moveme Functional Status Date Functional Assessmen t No Information Instructions Date Instruction Additional Infor ravinder Nausea Given the pat ient's symptoms are family history of gallstone disease I recommend a right upper quadrant ultrasound to exclude any evidence of gallbladder wall thickening or gallstones. If the patient is found to have gallstones I recommend a consult with a surgeon for possible laparoscopic cholecystectomy. If the abdominal ultrasound is negative I would consider an upper endoscopy for further evaluation. The patient has not responded to a trial of proton pump inhibitor which would argue against peptic ulcer disease or gastritis as a cause. Is also possible that the patient had some form of viral infection that could have caused some of her symptoms. Related to Nausea Assessments Type Assessment Date No Information Patient Care Teams Name Effective Dates (start - stop) Status Members No Information
[2023-02-26 11:36] LABS: SARS PCR* POSITIVE SARS-CoV-2 (Negative)
== END 2023-02-26 12:21 | disposition home or self-care (01) ==
PROVIDERS: Emergency Provider Emergency Medicine Emergency Medical Services; PCP Family Medicine
DX: U07.1 COVID-19 (principal)
CPT/HCPCS: 87631; 99282; 99283; 99284

== ENCOUNTER 2023-06-10 21:42 | Emergency (ER) | payer MEDICAID, SELFPAY ==
[2023-06-10 21:55] VITALS: BP 110/79; PULSE 103; RESP 16; TEMP 36.6; O2SAT 98; BMI 26.7
[2023-06-10] MEDS: METOCLOPRAMIDE HCL 10 MG in 0.9 % SODIUM CHLORIDE 100 ml 100 ML 306 MG IVPB (22:20)
[2023-06-10 22:30] LABS: Strep A DNA Probe* NOT DETECTED (Not Detectd)
[2023-06-10 22:43] LABS: PCR FLU A Negative PCR FLU A (Negative); PCR FLU B Negative PCR FLU B (Negative); PCR RSV Negative PCR RSV (Negative); SARS PCR* Negative SARS-CoV-2 (Negative)
[2023-06-10 22:57] LABS: Basophils Absolute Auto 0.02 K/uL (0.00-0.30); Basophils Percent Auto 0.4 % (0.0-3.0); Eosinophils Absolute Auto 0.03 K/uL (0.00-0.50); Eosinophils Percent Auto 0.6 % (0.0-7.0); Hematocrit 45.7 % (33.0-51.0); Hemoglobin* 14.8 gm/dL (12.0-16.0); Immature Granulocytes Abs Auto 0.04 K/uL (0.00-0.30); Immature Granulocytes Pct Auto 0.8 %; Lymphocytes Percent Auto 16.4 % (20-44); Mean Corpuscular HGB Conc 32 gm/dL (32-36); Mean Corpuscular Hemoglobin 31 pg (26-34); Mean Corpuscular Volume 94 fL (80-100); Monocytes Percent Auto 11.4 % (0.0-11.0); Neutrophils Absolute Auto 3.53 K/uL (1.7-7.0); Neutrophils Percent Auto 70.4 % (42.0-72.0); Platelet Count* 221 K/uL (140-440); RDW Coefficient of Variation % 12.6 % (11.5-15.5); Red Blood Count 4.86 m/uL (4.00-5.20); White Blood Count* 5.01 K/uL (4.50-11.00)
[2023-06-10 23:00] LABS: Slide Review Reflex No
[2023-06-10 23:07] LABS: Chloride* 103 mmol/L (96-114)
[2023-06-10 23:08] LABS: Albumin* 4.3 g/dL (3.3-5.0); Sodium* 138 mmol/L (135-149)
[2023-06-10] MEDS: 0.9 % SODIUM CHLORIDE 1000 ml 1,000 ML IV (23:09)
[2023-06-10 23:10] LABS: Anion Gap 8 mEq/L (7-15); Carbon Dioxide* 27 mmol/L (20-32); Creatinine* 0.6 mg/dL (0.5-1.5); Est. Creatinine Clearance* 113.36; Estimated Glomerular Filt Rate 128 ml/min
[2023-06-10 23:11] LABS: Alanine Aminotransferase* 23 U/L (4-35); Alkaline Phosphatase* 84 U/L (40-150); Aspartate Amino Transferase* 34 U/L (12-35); Bilirubin Direct* 0.2 mg/dL (0.0-0.5); Bilirubin Total* 0.3 mg/dL (0.1-1.5); Blood Urea Nitrogen* 15 mg/dL (5-24); Calcium* 8.8 mg/dL (8.4-10.6); Glucose* 87 mg/dL (60-115); Magnesium* 1.9 mg/dL (1.5-2.6); Total Protein* 7.5 g/dL (6.0-8.3)
--- NOTE | 2023-06-10 23:18 | ED_ITS ---
HPI - General Adult General Date Seen: 06/10/23 Chief complaint: Nausea/Vomiting Stated complaint: nausea, vomiting Time Seen by Provider: 06/10/23 22:17 Source: patient Mode of arrival: ambulatory Limitations: no limitations History of Present Illness HPI narrative: Patient is a 27-year-old young woman who presents with vomiting and diarrhea for 2 days. She says she was seen by her clinic doctor yesterday and given Zofran but it does not help. She has vomited multiple times today. Nonbloody loose stools. Diffuse crampy abdominal pain, no focal pain. No fevers, bloody stools, unusual rashes. Her children were sick with a GI bug this week as well though they seem to recover faster. She is currently taking doxycycline which she started on Tuesday for mastitis. She does not smoke or drink, general health is good. Allergies to cephalosporins and sulfa. Related Data Home Medications Medication Instructions Recorded Confirmed escitalopram oxalate 20 mg tablet 40 mg PO DAILY 06/18/22 02/26/23 levothyroxine 75 mcg tablet 75 mcg PO DAILY 06/18/22 02/26/23 cholecalciferol (vitamin D3) 25 25 mcg PO QDAY 10/08/22 12/08/22 mcg (1,000 unit) capsule docosahexaenoic acid 200 mg mg PO 10/08/22 12/08/22 capsule ( DHA) valacyclovir 1 gram tablet 1,000 mg PO DAILY 10/08/22 12/08/22 Previous Rx's Medication Instructions Recorded docusate sodium 100 mg capsule 100 mg PO DAILY #90 caps 11/23/22 ibuprofen 600 mg tablet 600 mg PO Q6H PRN Pain #90 tabs 11/23/22 metoclopramide HCl 10 mg tablet 10 mg PO Q6H PRN nausea and 06/11/23 (Reglan) vomiting #7 tabs Allergies Allergy/AdvReac Type Severity Reaction Status Date / Time cefprozil [From Cefzil] Allergy Intermediate Hives Verified 12/08/22 11:32 Sulfa (Sulfonamide Allergy Intermediate Hives Verified 12/08/22 11:32 Antibiotics) Review of Systems Status of ROS: Reports: 10 or more systems reviewed and unremarkable except as noted in History and below PFSH PFSH Surgical History (Updated 12/08/22 @ 11:58 by Siria Emerson PA-C) History of placement of ear tubes ?Z96.22 - Myringotomy tube(s) status (ICD-10) History of 2 sections ?Z98.891 - History of uterine scar from previous surgery (ICD-10) Social History What is your current living situation?: I presently have a place to live Problems where you live: no known problems In the past 12 months, utilities in danger of being shut off: no In past 12 months, lack of transportation kept you from medical appts, meetings, work, or getting things needed for daily living: no In the past 12 mos, have been you worried that your food would run out before you had money to buy more?: never true In the past 12 mos, the food you bought just didn't last and you didn't have money to buy more?: never true Smoking Status: Never smoker Do you use any of these nicotine containing products: None Second hand tobacco smoke exposure: No How often do you have a drink containing alcohol: never How often do you have six or more drinks on one occasion: Never AUDIT-C Alcohol total score: 0 Non-prescribed substance use: denies use Within the last year, have you been humiliated or emotionally abused in other ways by your partner or ex-partner: no Within the last year, have you been afraid of your partner or ex-partner: no Within the last year, have you been raped or forced to have any kind of sexual activity by your partner or ex-partner: no Within the last year, have you been kicked, hit, slapped, or otherwise physically hurt by your partner or ex-partner: no HARK total score: 0 How often does anyone, including family, friends and others, physically hurt you : never How often does anyone, including family, friends and others, insult or talk down to you: never How often does anyone, including family, friends and others, threaten you with harm: never How often does anyone, including family, friends and others, scream or curse at you: never Little interest or pleasure in doing things: not at all Feeling down, depressed, or hopeless: not at all service: No Exam Narrative: Exam Narrative: Vital signs as noted above. In general, an alert, well-appearing patient. Head: Normocephalic, atraumatic. Eyes: Pupils are equal reactive. Extraocular movements are full. Conjunctivae are normal. ENT: Mucous membranes are moist. Throat is normal. Neck: Supple without lymphadenopathy. Heart: Regular rate and rhythm. No murmur or rub. Lungs: Clear bilaterally. No increased work of breathing, crackles or wheezes. Abdomen: Soft and nontender. No organomegaly. Extremities: Well perfused. No edema. No calf tenderness. Pulses intact. Neurologic: Patient is alert and oriented to person and place. Speech is fluent. Face is symmetric. Moves all extremities equally. Affect: Normal. Skin: Warm and dry. Well perfused. Const: Vital Signs, click to edit/add: Vital Signs - 24 hr 06/10/23 21:55 06/10/23 23:35 Temperature 97.8 F Pulse Rate [Pulse Oximeter] 103 H 100 Respiratory Rate 16 16 Blood Pressure [Ri ght Upper Arm] 110/79 109/69 Pulse Oximetry 98 99 Oxygen Delivery Me thod Room Air Room Air Documenting provider has reviewed patient's vital signs: yes Course Course ED Course: Patient presents with vomiting and diarrhea in the setting of recent similar symptoms from her children. Most likely cause would be that a viral gastroenteritis, she is currently taking doxycycline but only for a few days, C diff colitis is less likely. Will hydrate, try Reglan to see if she has better resolution of her nausea with that. Assuming labs look okay, would plan to treat this is likely viral anticipating improvement over the weekend. Abdominal exam is benign with no focal tenderness doubt other causes such as appendicitis, cholecystitis, pancreatitis, hepatitis etcetera assuming labs are reassuring. Labs are all good, white blood cell count is 5, normal hemoglobin. Her potassium is 3, which I am sure is related to GI losses, I am hesitant to give her oral potassium here because I suspected may upset her stomach. I do think when she is no longer having vomiting and diarrhea that she will regular rate her potassium without difficulty, suggest potassium rich foods. Magnesium was 1.9. LFTs normal, COVID and strep negative. She is feeling significantly bet ter after fluids and Reglan. She has had Gatorade here, no further vomiting. She feels comfortable going home, discussed that this time that I suspect symptoms are viral but for worsening or localized pain, fevers, bloody stools unusual rashes or other significant changes she should come back. Otherwise, follow up with primary care next week if symptoms are not resolving over the weekend. Reglan prescribed for home use, clear liquids tomorrow, advance diet as able. Vital Signs Vital signs: Initial Vital Signs Temperature 97.8 F 06/10/23 21:55 Temperature Source Temporal Artery Scan 06/10/23 21:55 Pulse Rate 103 H 06/10/23 21:55 Respiratory Rate 16 06/10/23 21:55 Blood Pressure 110/79 06/10/23 21:55 Blood Pressure Mean 89 06/10/23 21:55 Blood Pressure Position Sitting 06/10/23 21:55 Pulse Oximetry 98 06/10/23 21:55 Oxygen Delivery Method Room Air 06/10/23 21:55 Vital Signs Temperature 97.8 F 06/10/23 21:55 Pulse Rate 103 H 06/10/23 21:55 Respiratory Rate 16 06/10/23 21:55 Blood Pressure 110/79 06/10/23 21:55 Pulse Oximetry 98 06/10/23 21:55 Oxygen Delivery Method Room Air 06/10/23 21:55 Temperature 97.8 F 06/10/23 21:55 Pulse Rate 100 06/10/23 23:35 Respiratory Rate 16 06/10/23 23:35 Blood Pressure 109/69 06/10/23 23:35 Pulse Oximetry 99 06/10/23 23:35 Oxygen Delivery Method Room Air 06/10/23 23:35 Medications Administered Medications: Discontinued Medications Generic Name Dose Route Start Last Admin Trade Name Henrryq PRN Reason Stop Dose Admin Sodium Chloride 1,000 mls @ 1,000 mls/hr 06/10/23 22:30 06/10/23 23:45 0.9 % Sodium Chloride 1000 Ml IV 06/10/23 23:29 Infused .Q1H CHRIS Infusion Metoclopramide HCl 10 mg/ 102 mls @ 306 mls/hr 06/10/23 22:22 06/10/23 23:36 Sodium Chloride IVPB 06/10/23 22:23 Infused ONCE ONE Infusion Medical Decision Making Lab Data Labs: Lab Results 06/10/23 06/10/23 Range/Units 21:59 22:50 WBC 5.01 (4.50-11.00) K/uL RBC 4.86 (4.00-5.20) m/uL Hgb 14.8 (12.0-16.0) gm/dL Hct 45.7 (33.0-51.0) % MCV 94 (80-100) fL MCH 31 (26-34) pg MCHC 32 (32-36) gm/dL RDW Coeff of Anjana 12.6 (11.5-15.5) % Plt Count 221 (140-440) K/uL Neut % (Auto) 70.4 (42.0-72.0) % Lymph % (Auto) 16.4 L (20-44) % [place] % (Auto) 11.4 H (0.0-11.0) % Eos % (Auto) 0.6 (0.0-7.0) % Baso % (Auto) 0.4 (0.0-3.0) % Neut # (Auto) 3.53 (1.7-7.0) K/uL Lymph # (Auto) 0.80 L (0.90-2.90) K/uL [place] # (Auto) 0.60 (0.00-0.90) K/UL Eos # (Auto) 0.03 (0.00-0.50) K/uL Baso # (Auto) 0.02 (0.00-0.30) K/uL Abs Immat Gran (auto) 0.04 (0.00-0.30) K/uL Imm/Tot Granulo (auto) 0.8 % Sodium 138 (135-149) mmol/L Potassium 3.0 L (3.6-5.1) mmol/L Chloride 103 (96-114) mmol/L Carbon Dioxide 27 (20-32) mmol/L Anion Gap 8 (7-15) mEq/L BUN 15 (5-24) mg/dL Creatinine 0.6 (0.5-1.5) mg/dL Estimated Creat Clear 113.36 Estimated GFR 128 ml/min Glucose 87 (60-115) mg/dL Calcium 8.8 (8.4-10.6) mg/dL Magnesium 1.9 (1.5-2.6) mg/dL Total Bilirubin 0.3 (0.1-1.5) mg/dL Direct Bilirubin 0.2 (0.0-0.5) mg/dL AST 34 (12-35) U/L ALT 23 (4-35) U/L Alkaline Phosphatase 84 (40-150) U/L Total Protein 7.5 (6.0-8.3) g/dL Albumin 4.3 (3.3-5.0) g/dL SARS-CoV-2 (PCR) Negative SARS-CoV-2 (Negative) Influenza Type A (PCR) Negative PCR FLU A (Negative) Influenza Type B (PCR) Negative PCR FLU B (Negative) RSV (PCR) Negative PCR RSV (Negative) Group A Strep DNA NOT DETECTED (Not Detectd) Discharge Plan Discharge Clinical Impression: Nausea, vomiting, and diarrhea Patient Disposition: Home, Self-Care Condition: Improved Instructions: Acute Nausea and Vomiting (DC) Additional Instructions: Clear liquids tomorrow, advance diet as able. Reglan if needed for nausea. Potassium rich foods to help replace when you are able to eat regular foods. If not improved by Tuesday, see your primary doctor. Return any time for worsening or focal abdominal pain, high fevers, bloody stools or other significant changes. Prescriptions: New metoclopramide HCl [Reglan] 10 mg tablet 10 mg PO Q6H PRN (Reason: nausea and vomiting) Qty: 7 0RF No Action valacyclovir 1 gram tablet 1,000 mg PO DAILY Hold Instructions: patient taking different medication in place of this DHA 200 mg capsule PO cholecalciferol (vitamin D3) 25 mcg (1,000 unit) capsule 25 mcg PO QDAY levothyroxine 75 mcg tablet 75 mcg PO DAILY Patient Comments: 75mg 3x per week, 150mg 4x per week escitalopram oxalate 20 mg tablet 40 mg PO DAILY docusate sodium 100 mg Capsule 100 mg PO DAILY Qty: 90 0RF Rx Instructions: Take 1-2 tablets daily as needed for constipation. ibuprofen 600 mg Tablet 600 mg PO Q6H PRN (Reason: Pain) Qty: 90 0RF Follow Up/Referrals: Natalee Marquis DO [Primary Care Provider] - Stand Alone Forms: [facility] Inst[facility]
[2023-06-10 23:35] VITALS: BP 109/69; PULSE 100; RESP 16; O2SAT 99
--- NOTE | 2023-06-11 11:24 | ED.NURSE ---
Patient calls as her pharmacy has not received prescription for reglan that was sent yesterday. Confirmed with pharmacist at [facility] that reglan was not received. Prescription verbalized to pharmacist, no further questions/concerns.
== END 2023-06-11 00:14 | disposition home or self-care (01) ==
PROVIDERS: Emergency Provider Emergency Medicine; PCP Family Medicine
DX: R11.2 Nausea with vomiting, unspecified (principal); R19.7 Diarrhea, unspecified
CPT/HCPCS: 36415; 80048; 80076; 83735; 85025; 87631; 87651; 96365; 99283; 99284; J2765; J7030

== ENCOUNTER 2023-07-18 18:21 | Emergency (ER) | payer MEDICAID, SELFPAY ==
[2023-07-18 18:41] VITALS: BP 117/79; PULSE 88; RESP 18; TEMP 37.1; O2SAT 99; BMI 25.2
--- OUTSIDE RECORDS SUMMARY | 2023-07-18 19:00 | XMS_ITS | Continuity of Care Document ---
Author Name Unknown Organization [facility] Address [address] [address] [place] [address] Phone Care Team Providers Care Die Sinker Name Role Phone Cody Hanson MD Unavailable [...] Diagnoses Date Provider Providers Copied on Encounter [facility], [address] [address], [place], [place], [id number], [place] tel:[phone] [facility] No Information Margie oRss. [address] [place] [address], [place], [place], [id number], [place]. tel:[phone] [facility], [address] [address], [place], [place], [id number], [place] tel:[phone] [facility] Epigastric pain Yen Perez. [address] [facility] [address], [place], [place], [id number], [place]. tel:[phone] Offic Cons New/estab Mod [facility], [address] [address], [place], [place], [address], [place] tel:[phone] [facility] Symptoms or Concerns (chief complaint) Nausea Yen Perez. [address] [facility], [place], [place], [id number], [place]. tel:[phone] Referring Provider: Natalee Marquis DO, [address] [place], [address]. tel:[phone] [facility], [address] [address], [place], [place], [id number], [place] tel:[phone] [facility] No Information Margie Ross. [address] [facility] [facility] [address], [place], [place], [id number], [place]. tel:[phone] Family History Family Member Type Diagnosis Age [...] ional interface ; Source: Other Registry Novel [id number], all formulations administered Note: [facility] bi-direct ional [...]
--- OUTSIDE RECORDS SUMMARY | 2023-07-18 19:00 | XMS_ITS | Clinical Summary ---
Author Name Unknown Organization [facility] Address [place], [place] [address] Care Team Providers Care Certified Endoscopy Technician Name Role Phone Natalee Marquis DO Primary Care Provider [phone] Allergies Active Allergy Reactions Criticality Noted Date Comments Cefprozil Hives 11/02/2006 Sulfa (Sulfonamide Antibiotics) Hives 04/2006 Medications Medication Sig Dispensed Refills Start Date End Date Status cholecalciferol (Vitamin D) 1,000 unit capsuleIndications:An xiety Take 1 Capsule (1,000 units) by mouth once daily. 90 Capsule 3 10/19/2021 Active valACYclovir (VALTREX) 1 gram tabletIndications:HSV infection TAKE 1 TABLET BY MOUTH DAILY 90 Tablet 2 01/15/2023 Active levothyroxine (SYNTHROID) 75 mcg tabletIndications:Hyp othyroidism due to acquired atrophy of thyroid Take 1 Tablet (75 mcg) by mouth before breakfast. 90 Tablet 3 01/24/2023 Active fluconazole (DIFLUCAN) 150 mg tabletIndications:Yea st vaginitis Take 1 today and 1 again in 1 week 2 Tablet 05/23/2023 Active escitalopram oxalate (LEXAPRO) 20 mg tabletIndications:Anx iety TAKE 1 TABLET(20 MG) BY MOUTH AT BEDTIME 90 Tablet 1 06/05/2023 Active ondansetron (ZOFRAN ODT) 4 mg disintegrating tabletIndications:Eze sea and vomiting, unspecified vomiting type Place 1 Tablet (4 mg) on the tongue every 6 hours if needed for Nausea/Vomitin g for up to 10 days. 30 Tablet 06/09/2023 06/19/2023 Active Problems Problem Noted Date Diagnosed Date Pyelectasis of fetus on ultrasound 09/02 Hypothyroidism affecting in third trim lelo 09/20/2022 History of intrauterine grow th restriction in prior , currently 09/20/2022 Anxiety during 09/20/2022 Pap smear for cervical cancer screening 05/05/19 Overview: 05/2022 NIL. Plan: Pap/HPV due 05/2025. care in first trimester 04/25/2022 Overview: Dating by LMP c/w 8wk US anatomy US with bilateral pelviectasis 4mm and HC 9%. Repeat US early 3rd trimester to recheck. Level 2US shows resolution pelviectasis. Per perinatology: growth ultrasound every 4 to 6 weeks is recommended given history of growth restriction. Estimated Date of Delivery: 11/27/22 Patient's last menstrual period was 02/20/2022 (exact date). GBS- Last Tdap- 04/26/19 Last Flu vaccine- 01/08/21 Glucose (GTT) result- Recent Labs 04/20/22 0949 HGB 12.9 ABORH B Rh Positive RCBANTIBODY Negative TREPONEPALLI Negative RUBELLAIGG 7.49 Positive HBSAG Negative [id number] Non Reactive CHLAMYDIAPRB Negative NGONORRPROBE Negative Allergies Allergen Reactions ? ? Cefzil [Cefprozil] Hives ? ? Sulfa (Sulfonamide Antibiotics) Hives OB History Para Term AB Living 4 2 2 0 1 2 SAB IAB Ectopic Multiple Live Births 1 0 0 0 2 # Outcome Date GA Lbr Yoel/2nd Weight Sex Delivery Anes PTL Lv 4 Current 3 Term 07/08/19 38w4d F MECHE Comments: asymmetric growth restriction, saw perinatology. Had repeat C/S 2 Term 03/25/18 40w5d M MECHE 1 SAB Past Medical History: . Date ? ? Genital herpes ? ? Implanon in place 09/15/2012 removed 07/2013 Past Surgical History: . Laterality Date ? ? SECTION due to concern for ?active HSV lesion ? ? MYRINGOTOMY W TUBE PLACEMENT 1995 No data on file. Problems (from 04/20/22 to present) No problems associated with this episode. Keke Alan RN ....05/03/2022 4:26 PM Hypothyroidism (acquired) 04/20/2022 IUGR, 06/18/2019 History of section 06/12/2019 Seasonal allergies 07/12/2013 Hypothyroidism 04/20/2013 Adjustment disorder 04/20/2013 Oppositional defiant disorder of childhood or ad olescence 08/24/2010 Resolved Problems Problem Noted Date Diagnosed Date Resolved Date MPP TESTING PT 06/19/2019 04/25/2022 Overview: MPP TESTING ONLY NEXT VISIT ALERTS: IUGR 36w1d PLANS & FUTURE APPOINTMENTS: TESTING PLAN: - Testing: Through 06/21/19 GROWTH PLAN: - Growth: Next 06/21/19 DELIVERY PLAN: - Scheduled delivery: - Preferred delivery location: [facility] [place] PRIMARY DIAGNOSIS: 23 y.o. Estimated Date of Delivery: 07/18/19 IUGR LAST GROWTH: 03/07/19=21% 06/15/19=3% ECHO: REFERRING PHYSICIAN/PHONE/LAST UPDATE: Natalee Marquis D.O. [phone] Primary MD approves scheduling of recommended ultrasounds/testing: Yes SPECIALISTS/CONSULTS: Include: Specialty MD Clinic Name Phone# [place] and ADD TO TREATMENT TEAM GENETICS: Declined CARE COORDINATION: Needs H&P 30 days prior to delivery if MPP doing delivery PERTINENT LABS: B positive blood type PERTINENT MEDS: Synthroid PLAN OF CARE: 01/03/2019 04/25/2022 Overview: US 05/17/19 with IUGR 3rd percentile. BPP's with dopplers started. Perinatology consult 06/21/19 with 4%, asymmetric growth restriction. Recommend biweekly BPP and weekly TSH. Deliver 07/13/19 as planned. Repeat C/s Scheduled 07/13/2019 GBS POSITIVE Estimated Date of Delivery: 07/18/19 Patient's last menstrual period was 10/02/2018 (exact date). Last Tdap- 04/26/2019 Last Flu vaccine- 01/02/2019 Glucose (GTT) result- Component Latest Ref Rng & Units 04/26/2019 HEMOGLOBIN 12.0 - 16.0 g/dL 13.0 MCV 80 - 100 fL 98 GLUCOSE,GESTATIONAL 65 - 139 mg/dL 65 20 week US: IMPRESSION: 1. Normal OB ultrasound. Single fetus present 2. No intrinsic abnormalities noted on anatomic survey. 3. Ultrasound gestational age 20 weeks 0 days, AZEB 07/25/2019. 4. LMP 10/11/2018. Dating by LMP 21 weeks 0 days, AZEB 07/18/2019. Allergies Allergen Reactions ? ? Cefzil [Cefprozil] Hives ? ? Sulfa (Sulfonamide Antibiotics) Hives OB History Para Term AB Living 3 1 1 0 1 1 SAB TAB Ectopic Multiple Live Births 1 0 0 0 1 # Outcome Date GA Lbr Yoel/2nd Weight Sex Delivery Anes PTL Lv 3 Current 2 Term 03/25/18 40w5d M MECHE 1 SAB Create lab flowsheet for OB labs- Component Latest Ref Rng & Units 01/02/2019 01/02/2019 01/02/2019 10:55 AM 10:55 AM 10:55 AM ANTIBODY SCREEN Negative Negative SPECIMEN EXPIRATION DATE/TIME 01/05/19 23:59 HEMOGLOBIN 12.0 - 16.0 g/dL 13.4 MCV 80 - 100 fL 94 RUBELLA IGG ANTIBODY Positive 11.40 ABORH B Rh Positive HBSAG Nonreactive Nonreactive TSH 0.35 - 4.94 uIU/mL 2.33 HIV-1/HIV-2 ANTIBODY Non-Reactive Non-Reactive TREPONEMA PALLIDUM Negative Negative Past Medical History: . Date ? ? Genital herpes ? ? Implanon in place 09/15/2012 removed 07/2013 Past Surgical History: . Laterality Date ? ? MYRINGOTOMY W TUBE PLACEMENT 1995 No data on file. Problems (from 01/02/19 to present) No problems associated with this episode. MIGUEL De Jesus.....01/03/2019 9:36 AM 07/25/2017 06/26/2019 Overview: History HSV, needs HSV prophylaxis starting 36wks It's a boy! Dad does not want to cut the cord. GBS NEGATIVE Component Latest Ref Rng & Units 02/22/2018 Culture No Group B Streptococcus isolated. Estimated Date of Delivery: None noted. No LMP recorded. Patient is . Last Tdap- 12/15/2017 Last Flu vaccine- 12/15/2017 Allergies Allergen Reactions ? ? Cefzil [Cefprozil] Hives ? ? Sulfa (Sulfonamide Antibiotics) Hives Obstetric History T0 L0 SAB0 TAB0 Ectopic0 Multiple0 Live Births0 # Outcome Date GA Lbr Yoel/2nd Weight Sex Delivery Anes PTL Lv 2 Current 1 Create lab flowsheet for OB labs- Component Latest Ref Rng & Units 07/21/2017 07/21/2017 07/21/2017 4:28 PM 4:28 PM 4:28 PM ANTIBODY SCREEN Negative Negative SPECIMEN EXPIRATION DATE/TIME 07/24/17 23:59 HEMOGLOBIN 12.0 - 16.0 g/dL 14.0 MCV 80 - 100 fL 96 RUBELLA IGG ANTIBODY Positive 20.30 TSH 0.35 - 4.94 uIU/mL 2.30 ABORH B Rh Positive HBSAG Nonreactive Nonreactive HIV-1/HIV-2 ANTIBODY Non-Reactive Non-Reactive TREPONEMA PALLIDUM Negative Negative Component Latest Ref Rng & Units 12/15/2017 GLUCOSE,GESTATIONAL 65 - 139 mg/dL 90 Component Latest Ref Rng & Units 04/26/2019 TREPONEMA PALLIDUM Negative Negative Past Medical History: Diagnosis Date ? ? Genital herpes ? ? Implanon in place 09/15/2012 removed 07/2013 Past Surgical History: Procedure Laterality Date ? ? MYRINGOTOMY W TUBE PLACEMENT 1995 No data on file. OB Problems (from 07/25/17 to present) No problems associated with this episode. MIGUEL De Jesus.....07/25/2017 7:42 AM 09/07/2016 05/03/2019 Gastritis 07/12/2013 07/23/2014 Bacterial vaginosis 04/20/2013 07/24/[address] 09/15/2012 07/23/2014 Overview: removed 07/12/13 Routine infant or child health check 11/02/2006 07/23/2014 Encounters Date Type Department Care Team Description 06/09/2023 9:35 AM SENIOR ENVIRONMENTAL CONSULTANT Office Visit [facility] [address] [place] [address] Bettie Cottrell PA Breast Problem (Right breast pain) 06/09/2023 Travel 06/06/2023 2:55 PM SENIOR ENVIRONMENTAL CONSULTANT Office Visit [facility] [address] [place] [address] Bettie Cottrell PA Breast Problem (Right side) 06/06/2023 Travel 06/05/2023 Refill [facility] [address] [place] [address] Natalee Marquis DO Refill Request (Escitalopram Oxalate) 05/23/2023 1:55 PM SENIOR ENVIRONMENTAL CONSULTANT Office Visit [facility] [address] [place] [address] Natalee Marquis DO Breast Problem (Left breast pain 1 day); Fever; Nausea 05/23/2023 Travel 05/15/2023 11:55 AM SENIOR ENVIRONMENTAL CONSULTANT Office Visit [facility] [address] [place] [phone] Annabelle Rivera, SITE INSPECTOR Cough 05/15/2023 Travel 05/09/2023 2:30 PM SENIOR ENVIRONMENTAL CONSULTANT Ancillary Procedure [facility] [address] [place] [address] 05/09/2023 Travel 05/05/2023 2:45 PM SENIOR ENVIRONMENTAL CONSULTANT Office Visit [facility] [address] [place] [address] Natalee Marquis DO Breast Problem (Right tender spot) 05/05/2023 Travel from Last 3 Months Immunizations Name Administration Dates Next Due DT (Age < 7 years) 06/18/1998 DTP 06/18/1998,03/31/1998,01/24/1998 DTaP 11/22/2002,06/12/1999 HIB PRP-T (ActHIB,Hiberix) 06/12/1999,,03/31/1998,01/24 HPV 9 (Gardasil 9) 02/08/2013,05/17/2012, 010 Hepatitis A (Peds) 03/05/2015,07/23/2014 Hepatitis B (Peds) 11/02/2006, 9,06/18/1998,01/24 Hepatitis B, Unspecified 11/02/2006,06/1998,06/18/1998,01/24 Hib Conjugate, Unspecified 06/12/1999,,03/31/1998,01/24 Human Papilloma Virus Vaccine 02/08/2013, 013,02/23/2010 Inactivated Polio Vaccine 11/02/2006,,06/12/1999,03/31,01/24/1998 Influenza A (H1N1), Inactivated 03/13/2009 Influenza A (H1N1), Inactiva anshul (Age >=3 Years) 03/13/2009 Influenza, IIV3 (Age 6-35 mos) 03/13/2009 Influenza, IIV3 (Age >=3 years) 04/21/2013,03/13 Influenza, IIV4 01/24/2023, 1,12/18/2019,01/02,12/15/2017,01/31/2014 MMR 11/02/2006,11/22/2002,03/03/1999 Meningococcal Vaccine (Menveo) 07/23/2014 Td (Age >=7 Years) 03/31/1998 Tdap 09/02/2022, 0,12/15/2017,09/28,01/24/2012,11/02/2006 Tuberculin (PPD) 04/30/2015,04/14/2015, 5 Varicella Vaccine 11/02/2006,03/03/1999 Family History Medical History Relation Name Comments Good Health Father Good Health Mother Relation Name Status Comments Father Alive Maternal Grandfather Alive Maternal Grandmother Mother Alive Paternal Grandfather Alive Paternal Grandmother Social History Tobacco Use Types Packs/Day Years Used Date Smoking Tobacco: Never Passive Smoke Exposure: Never Smokeless Tobacco: Never Tobacco Cessation:Counseling Given: Yes Alcohol Use Standard Drinks/Week Comments Not Currently 0 (1 standard drink = 0.6 oz pur e alcohol) PHQ-2 Answer Date Recorded PHQ-2 TOTAL SCORE 2 01/24/2023 Social Connections Answer Date Recorded Frequency of Communication with Friends and Fami ly 0 01/24/2023 Alcohol Use Answer Date Recorded How often do you have a drink containing alcohol ? 2 11/25/2021 How many drinks containing a lcohol do you have on a typical day when you are drinking? 1 11/25/2021 How often do you have five or more drinks on one occasion? 0 11/25/2021 Financial Resource Strain Answer Date R ecorded Difficulty of Paying Living Expenses 3 01/24/2023 Difficulty of Paying Living Expenses Not on file 01/24/2023 Food Insecurity Answer Date Recorded Worried About Running Out of Food in the Last Ye ar 1 01/24/2023 Transportation Needs Answer Date Record ed Lack of Transportation (Medical) 1 01/24/2023 Housing Stability Answer Date Recorded Unable to Pay for Housing in the Last Year 1 01/24/2023 Sex and Gender Information Value Date Recorded Sex Assigned at Not on file Gender Identity Not on file Sexual Orientation Not on file Obstetrics History Para Term AB IAB SAB Ectopic Multiple Livin g Live Births 4 3 3 0 1 0 1 0 0 3 3 Date Outcome GA Total Labor Labor/2nd/3rd Weight Sex Delivery Anes PTL Meche A1 A5 Name Cl in SAB 03/25 Term 40w 5d M Niyah ng 07/07 Term 38w 4d F Niyah ng Comments:asymmetric fe kerry growth restriction, saw perinatology. Had repeat C/S 11/22 Term 39w 2d M Niyah ng Last Filed Vital Signs Vital Sign Reading Time Taken Comments Blood Pressure 128/70 06/09/2023 9:46 AM SENIOR ENVIRONMENTAL CONSULTANT Pulse 99 06/09/2023 9:46 AM SENIOR ENVIRONMENTAL CONSULTANT Temperature 36.5 ??C (97.7 ??F) 06/06/2023 3:12 PM CS T Respiratory Rate 14 05/15/2023 12:14 PM SENIOR ENVIRONMENTAL CONSULTANT Oxygen Saturation 100% 06/09/2023 9:46 AM SENIOR ENVIRONMENTAL CONSULTANT Inhaled Oxygen Concentration - - Weight 66.2 kg (146 lb) 06/09/2023 9:46 AM SENIOR ENVIRONMENTAL CONSULTANT Height 160.7 cm (5' 3.25) 11/05/2020 2:48 PM CD T Body Mass Index 25.66 11/05/2020 2:48 PM CDT Plan of Treatment Upcoming Encounters Date Type Department Care Team (Late st Contact Info) Description 08/03/2023 9:10 AM CDT Office Visit [facility] [address] [place] [address] Natalee Marquis DO [address] [place] [address] Health Maintenance Due Date Last Done Comments BMI (ht and wt on same day) for age 18+ 11/05/2021 11/05/2020, 06/23/2020, 06/09/2020, Additional history exists COVID-19 vaccine series (2022- season) 2022 Influenza for age 9-49 12/04/2023 , 01/08/2021, 12/18/2019, Additional history exists Depression screening for age 12+ 01/28/2024 01/27/2023, 01/24/2023, 11/25/2021, Additional history exists Pap test for age 21-65 05/19/2025 05/19/2022, 2018 Tetanus booster 09/02/2032 09/02/2022, 04/05, 12/15/2017, Additional history exists HPV series for age 9-26 Completed 02/09/20 13, 02/08/2013, 05/17/2012, Additional history exists Hepatitis C screening for age 18-79 Completed 12/29/2017 HIV for age 15-65 Completed 04/20/2022, , 12/29/2017, Additional history exists Tdap Completed 09/02/2022, 04/05, 12/15/2017, Additional history exists Pneumococcal series for age 6-64 Aged Out No longer eligible based on patient's age to complete this topic Procedures Procedure Name Priority Date/Time Associated Diagnosis Comments URINE CULTURE Add On 05/23/2023 2:28 PM SENIOR ENVIRONMENTAL CONSULTANT Dysuria URINALYSIS MICROSCOPIC Routine 05/23/2023 2:28 PM SENIOR ENVIRONMENTAL CONSULTANT Dysuria UA W/ SEDIMENT EXAM REFLEXED PER CRITERIA Routine 05/23/2023 2:28 PM SENIOR ENVIRONMENTAL CONSULTANT Dysuria COVID/FLU/RSV PANEL Routine 05/15/2023 1 2:12 PM SENIOR ENVIRONMENTAL CONSULTANT Cough, unspecified type US BREAST UNILATERAL RIGHT LIMITED KIM 05/09/2023 2:40 PM SENIOR ENVIRONMENTAL CONSULTANT Mastitis SCHOOL COOK THIN PREP PAP SCREEN IMAGED Routine 05/19/2022 9:16 AM SENIOR ENVIRONMENTAL CONSULTANT Cervical cancer screening LC HIV-1/O/2, 4TH GENERATION Routine 04/20/2022 9:49 AM SENIOR ENVIRONMENTAL CONSULTANT Encounter for care in first trimester of first EXPOSURE (BBF) ANTI HCV STAT 12/29/2017 11:13 PM CDT from Last 3 Months or Most Recently Relevant to Health Maintenance Results * (ABNORMAL) URINALYSIS MICROSCOPIC (05/23/2023 2:28 PM SENIOR ENVIRONMENTAL CONSULTANT) RBC 3-5(A) 0-2, None Seen /HPF 05/23/2023 2:43 PM SENIOR ENVIRONMENTAL CONSULTANT [facility] WBC 6-10(A) 0-2, 3-5, None Seen /HPF 05/23/2023 2:43 PM SENIOR ENVIRONMENTAL CONSULTANT [facility] BACTERIA Few None Seen, Rare, Few Bacteria/H PF 05/23/2023 2:43 PM SENIOR ENVIRONMENTAL CONSULTANT [facility] EPITHELIAL CELLS Few None Seen, Few Epi/HPF 05/23/2023 2:43 PM SENIOR ENVIRONMENTAL CONSULTANT [facility] Mucus Present 05/23/2023 2:43 PM SENIOR ENVIRONMENTAL CONSULTANT [facility] Urine URINE SPECIMEN / Unknown Non-Blood / Unknown 05/23/2023 2:28 PM SENIOR ENVIRONMENTAL CONSULTANT 05/23/2023 2:34 PM SENIOR ENVIRONMENTAL CONSULTANT Natalee aMrquis DO URINE [facility] [address] [place] [address], * URINE CULTURE (05/23/2023 2:28 PM SENIOR ENVIRONMENTAL CONSULTANT) CULTURE No growth (<1,000 CFU/mL) 05/25/2023 9:48 AM SENIOR ENVIRONMENTAL CONSULTANT [facility] Urine URINE SPECIMEN / Unknown Non-Blood / Unknown 05/23/2023 2:28 PM SENIOR ENVIRONMENTAL CONSULTANT 05/23/2023 2:34 PM SENIOR ENVIRONMENTAL CONSULTANT Natalee Marquis DO MICROBIOLOGY [facility] [address] [place] [id number], [place] * (ABNORMAL) UA W/ SEDIMENT EXAM REFLEXED PER CRITERIA (05/23/2023 2:28 PM SENIOR ENVIRONMENTAL CONSULTANT) COLOR Yellow Yellow Color 05/23/2023 2:43 PM SENIOR ENVIRONMENTAL CONSULTANT [facility] CLARITY Clear Clear Clarity 05/23/2023 2:43 PM SENIOR ENVIRONMENTAL CONSULTANT [facility] SPECIFIC GRAVITY,URINE 1.020 1.010, 1.015, 1.020, 1.025 05/23/2023 2:43 PM SENIOR ENVIRONMENTAL CONSULTANT [facility] PH,URINE 7.0 6.0, 7.0, 8.0, 5.5, 6.5, 7.5, 8.5 05/23/2023 2:43 PM SENIOR ENVIRONMENTAL CONSULTANT [facility] UROBILINOGEN, QUALITATIVE Normal Normal EU/dl 05/23/2023 2:43 PM SENIOR ENVIRONMENTAL CONSULTANT [facility] PROTEIN, URINE Negative Negative mg/dL 05/23/2023 2:43 PM SENIOR ENVIRONMENTAL CONSULTANT [facility] GLUCOSE, URINE Negative Negative mg/dL 05/23/2023 2:43 PM SENIOR ENVIRONMENTAL CONSULTANT [facility] KETONES,URINE Negative Negative mg/dL 05/23/2023 2:43 PM SENIOR ENVIRONMENTAL CONSULTANT [facility] BILIRUBIN,URI NE Negative Negative 05/23/2023 2:43 PM SENIOR ENVIRONMENTAL CONSULTANT [facility] OCCULT BLOOD,URINE Negative Negative 05/23/2023 2:43 PM SENIOR ENVIRONMENTAL CONSULTANT [facility] NITRITE Negative Negative 05/23/2023 2:43 PM SENIOR ENVIRONMENTAL CONSULTANT [facility] LEUKOCYTE ESTERASE Small(A) Negative 05/23/2023 2:43 PM SENIOR ENVIRONMENTAL CONSULTANT [facility] Urine URINE SPECIMEN / Unknown Non-Blood / Unknown 05/23/2023 2:28 PM SENIOR ENVIRONMENTAL CONSULTANT 05/23/2023 2:34 PM SENIOR ENVIRONMENTAL CONSULTANT Natalee Marquis DO URINE [facility] [address] [place] [address], [place] [phone] * COVID/FLU/RSV PANEL (05/15/2023 12:12 PM SENIOR ENVIRONMENTAL CONSULTANT) COVID 19 [facility] MOLECULAR Negative Negative 05/16/2023 2:44 PM SENIOR ENVIRONMENTAL CONSULTANT [facility] TRAL LABORAT[facility] Comment:All PCR tests are rivero bject to false negative result due to variability in viral load and collection technique. A negative result does not rule out a SARS-CoV-2 infection. Clinical correlation required. INFLUENZA A PCR Negative 4 2:44 PM SENIOR ENVIRONMENTAL CONSULTANT [facility] TRAL LAB[facility] INFLUENZA B PCR Negative 4 2:44 PM SENIOR ENVIRONMENTAL CONSULTANT [facility] TRA LABORATORY Respiratory Syncytial Virus Negative 05/16/2023 2:44 PM SENIOR ENVIRONMENTAL CONSULTANT [facility] Nasopharyngeal NASOPHARYNGEAL SWAB / Unknown Non-Blood / Unknown 05/15/2023 12:12 PM SENIOR ENVIRONMENTAL CONSULTANT 05/15/2023 12:18 PM SENIOR ENVIRONMENTAL CONSULTANT Narrative [facility] - 05/16/2023 2:44 PM SENIOR ENVIRONMENTAL CONSULTANT This test has been authorized by FDA under an Emergency Use Authorization (EUA). This test is only authorized for the duration of time the declaration that circumstances exist justifying the authorization of the emergency use of in vitro diagnostic tests for detection of SARS-CoV-2 virus and/or diagnosis of COVID-19 infection under section 564(b)(1) of the Act, 21 U.S.C. 360bbb-3(b) (1), unless the authorization is terminated or revoked sooner. Annabelle Rivera NP MICROBIOLOGY [facility] [address] [place] [address], [place] * US BREAST UNILATERAL RIGHT LIMITED (05/09/2023 2:40 PM SENIOR ENVIRONMENTAL CONSULTANT) Anatomical Region Laterality Modality BREASTS, Breast Right Right Ultrasound 05/09/2023 2:44 PM SENIOR ENVIRONMENTAL CONSULTANT Impressions 05/09/2023 3:54 PM SENIOR ENVIRONMENTAL CONSULTANT Unremarkable targeted RIGHT breast ultrasound. No suspicious findings. No abscess. RECOMMENDATIONS: Clinical follow-up. BI-RADS Category 1: Negative Dictated by: Johnny Cazares MD @05/09/2023 2:44:06 PM / CRL:jj Narrative 05/09/2023 3:54 PM SENIOR ENVIRONMENTAL CONSULTANT For Patients: As a result of the Cures Act, medical imaging exams and procedure reports are released immediately into your electronic medical record. ??You may view this report before your referring provider. ?? If you have questions, please contact your health care provider. RIGHT BREAST ULTRASOUND, 05/09/2023 CLINICAL HISTORY: RIGHT breast mastitis. COMPARISON: None. TECHNIQUE: Real-time ultrasound imaging of RIGHT breast with imaging documentation. FINDINGS: Targeted sonogram RIGHT breast 9 o'clock 2-5 cm from the nipple performed. No abscess or drainable fluid collection. No solid mass. Natalee Marquis DO US * SCHOOL COOK THIN PREP PAP SCREEN IMAGED (05/19/2022 9:16 AM SENIOR ENVIRONMENTAL CONSULTANT) Case Report Gynecologic Cytology Report ? Case: [id number] ? Authorizing Provider: ??Natalee Marquis, ?Collected: ? 05/19/2022 0916 ? Ordering Location: ? [facility] ?? Received: ?05/19/2022 1013 ? Clinic ? First Screen: ?Bacangelica, Joss ? Specimen: ?SCHOOL COOK ThinPrep Vial Screening, Cervical ? 06/03/2022 7:05 PM [facility] LABORAT[facility]-C ENTRAL LABORATORY INTERPRETATION/ RESULT NEGATIVE FOR INTRAEPITHELIAL LESION OR MALIGNANCY (NIL) (none) 06/03/2022 7:05 PM [facility] LABORAT[facility]-C ENTRAL LABORATORY NISM(S) Shift in marilynn suggestive of bacterial vaginosis 06/03/2022 7:05 PM SENIOR ENVIRONMENTAL CONSULTANT [facility] SPECIMEN ADEQUACY Satisfactory for evaluation No endocervical component seen in a patient 06/03/2022 7:05 PM SENIOR ENVIRONMENTAL CONSULTANT [facility] LABORATORY-C ENTRAL LABORATORY Date of LMP 02/20/22 06/03/2022 7:05 PM SENIOR ENVIRONMENTAL CONSULTANT [facility]-C ENTRAL LABORAT[facility] Last Pap Date 02/07/19 06/03/2022 7:05 PM SENIOR ENVIRONMENTAL CONSULTANT [facility] LABORATORY-C ENTRAL LABORATORY Last Pap Result NIL 7:05 PM SENIOR ENVIRONMENTAL CONSULTANT [facility] LABORATORY-C ENTRAL LABORATORY Abnormal Pap or [place] Bx in last 5 years No 06/03/2022 7:05 PM SENIOR ENVIRONMENTAL CONSULTANT [facility] LABOR[facility]-C ENTRAL LABORATORY Menstrual Status 06/03/2022 7:05 PM SENIOR ENVIRONMENTAL CONSULTANT [facility] LABORAT[facility]-C ENTRAL LABORATORY [place] Bx Done Today No 06/03/2022 7:05 PM SENIOR ENVIRONMENTAL CONSULTANT [facility]-C ENTRAL LABORATORY Additional Information None given 06/03/2022 7:05 PM SENIOR ENVIRONMENTAL CONSULTANT [facility] LABORATORY-C ENTRAL LABORATORY Comment: Cytology is screened at [facility], Central Laboratory - [address], [place] [address] and [facility] - [address], [place] [address] and [facility] - [address], [place] [address] Interpreted at [facility], Central Laboratory - [address], [place] [address] Automated Review Successful 06/03/2022 7:05 PM SENIOR ENVIRONMENTAL CONSULTANT [facility]- ENTRAL LABORATORY Comment:Specimen processed s uccessfully by automated screw cutter device, ThinPrep Imaging System, [employer] Note The pap test is a screening technique, not a diagnostic procedure. It is used primarily to screen for squamous cancers and precursor lesions. Published studies have shown that it is subject to both false negative and false positive results. The pap test should not be used as the sole means to diagnose or exclude pre-malignant and malignant lesions. 06/03/2022 7:05 PM SENIOR ENVIRONMENTAL CONSULTANT [facility] Other (Cervical) Non-Blood / Unknown 05/19/2022 9:16 AM SENIOR ENVIRONMENTAL CONSULTANT 05/19/2022 10:13 AM SENIOR ENVIRONMENTAL CONSULTANT Natalee Marquis DO PATHOLOGY/CYTOLOGY [facility] [address] [place] [address], * LC HIV-1/O/2, 4TH GENERATION (04/20/2022 9:49 AM SENIOR ENVIRONMENTAL CONSULTANT) HIV Scr 4th Gen Non Reactive Non Reactive 04/22/2022 9:06 PM SENIOR ENVIRONMENTAL CONSULTANT [facility] Comment: HIV Negative HIV-1/HIV-2 antibodies and HIV-1 p24 antigen were NOT detected. There is no laboratory evidence of HIV infection. Blood BLOOD SPECIMEN / Unknown Venipuncture / Unknown 04/20/2022 9:49 AM SENIOR ENVIRONMENTAL CONSULTANT 04/20/2022 9:51 AM SENIOR ENVIRONMENTAL CONSULTANT Narrative [facility] - 04/22/2022 9:06 PM SENIOR ENVIRONMENTAL CONSULTANT Performed at: ??01 - [address] [place] ??[id number] Hydrodynamicist: Antoni Carrillo MD, Phone: ??[phone] Natalee Marquis DO LABORATORY [facility] ([facility]) [address] [place], [place] [address] * Patient Source ANTI HCV (12/29/2017 11:13 PM CDT) HEPATITIS C ANTIBODY Non-React chel Non-React chel 12/30/2017 4:28 PM CDT [facility] Comment:Antibodies to HCV no t detected; does not exclude the possibility of exposure to HCV. Blood BLOOD SPECIMEN / Unknown Venipuncture / Unknown 12/29/2017 11:13 PM CDT 12/29/2017 11:23 PM CDT Luz Mandujano SITE INSPECTOR SEND OUTS [facility] [address] [place] [address], [place] from Last 3 Months or Most Recently Relevant to Health Maintenance Advance Directives * Full Code (Latest Code Status on File) Date Activated Date Inactivated Comments 04/19/2013 5:58 PM 04/23/2013 5:33 PM Care Teams Certified Endoscopy Technician Relationship Specialty Start Date End Date Natalee [place] [address] [address] [place] [address] PCP - General Family Practice 08/24/18
--- NOTE | 2023-07-18 19:38 | ED_ITS ---
HPI - General Adult General Date Seen: 07/18/23 Chief complaint: Sore Throat Stated complaint: Sore throat Time Seen by Provider: 07/18/23 18:22 Source: patient Mode of arrival: ambulatory Limitations: no limitations History of Present Illness HPI narrative: Patient is a 27-year-old woman who presents for evaluation of sore throat, congestion, cough which started yesterday. Her son was diagnosed with strep throat about 10 days ago, has completed antibiotics. She has not run a fever, her 4-year-old daughter now has similar symptoms as well. Related Data Home Medications Medication Instructions Recorded Confirmed escitalopram oxalate 20 mg tablet 40 mg PO DAILY 06/18/22 02/26/23 levothyroxine 75 mcg tablet 75 mcg PO DAILY 06/18/22 02/26/23 cholecalciferol (vitamin D3) 25 25 mcg PO QDAY 10/08/22 12/08/22 mcg (1,000 unit) capsule docosahexaenoic acid 200 mg mg PO 10/08/22 12/08/22 capsule ( DHA) valacyclovir 1 gram tablet 1,000 mg PO DAILY 10/08/22 12/08/22 Previous Rx's Medication Instructions Recorded docusate sodium 100 mg capsule 100 mg PO DAILY #90 caps 11/23/22 ibuprofen 600 mg tablet 600 mg PO Q6H PRN Pain #90 tabs 11/23/22 metoclopramide HCl 10 mg tablet 10 mg PO Q6H PRN nausea and 06/11/23 (Reglan) vomiting #7 tabs Allergies Allergy/AdvReac Type Severity Reaction Status Date / Time cefprozil [From Cefzil] Allergy Intermediate Hives Verified 12/08/22 11:32 Sulfa (Sulfonamide Allergy Intermediate Hives Verified 12/08/22 11:32 Antibiotics) Review of Systems Status of ROS: Reports: 6 or more systems reviewed and unremarkable except as noted in History and below PFSH PFSH Surgical History History of placement of ear tubes ?Z96.22 - Myringotomy tube(s) status (ICD-10) History of 2 sections ?Z98.891 - History of uterine scar from previous surgery (ICD-10) Social History What is your current living situation?: I presently have a place to live Problems where you live: no known problems In the past 12 months, utilities in danger of being shut off: no In past 12 months, lack of transportation kept you from medical appts, meetings, work, or getting things needed for daily living: no In the past 12 mos, have been you worried that your food would run out before you had money to buy more?: never true In the past 12 mos, the food you bought just didn't last and you didn't have money to buy more?: never true Smoking Status: Never smoker Do you use any of these nicotine containing products: None Second hand tobacco smoke exposure: No How often do you have a drink containing alcohol: never How often do you have six or more drinks on one occasion: Never AUDIT-C Alcohol total score: 0 Non-prescribed substance use: denies use Within the last year, have you been humiliated or emotionally abused in other ways by your partner or ex-partner: no Within the last year, have you been afraid of your partner or ex-partner: no Within the last year, have you been raped or forced to have any kind of sexual activity by your partner or ex-partner: no Within the last year, have you been kicked, hit, slapped, or otherwise physically hurt by your partner or ex-partner: no HARK total score: 0 How often does anyone, including family, friends and others, physically hurt you : never How often does anyone, including family, friends and others, insult or talk down to you: never How often does anyone, including family, friends and others, threaten you with harm: never How often does anyone, including family, friends and others, scream or curse at you: never Little interest or pleasure in doing things: not at all Feeling down, depressed, or hopeless: not at all service: No Exam Narrative: Exam Narrative: Vital signs as noted above. In general, an alert, well-appearing patient. Voice is normal. Head: Normocephalic, atraumatic. Eyes: Pupils are equal reactive. Extraocular movements are full. Conjunctivae are normal. ENT: Mucous membranes are moist. Throat is normal. TMs are normal. Neck: Supple without lymphadenopathy. Heart: Regular rate and rhythm. No murmur or rub. Lungs: Clear bilaterally. No increased work of breathing, crackles or wheezes. Neurologic: Patient is alert and oriented to person and place. Speech is fluent. Face is symmetric. Moves all extremities equally. Affect: Normal. Skin: Warm and dry. Well perfused. Const: Vital Signs, click to edit/add: Vital Signs - 24 hr 07/18/23 18:41 Temperature 98.8 F Pulse Rate [Right Pulse Oximeter] 88 Respiratory Rate 18 Blood Pressure [Le ft Upper Arm] 117/79 Pulse Oximetry 99 Oxygen Delivery Me thod Room Air Documenting provider has reviewed patient's vital signs: yes Course Course ED Course: Rapid strep pending. Exam is benign. No evidence of abscess. Rapid strep is negative, suspect viral cause. Declined viral testing. Will treat symptomatically, return for worsening and see primary care if not improving over the next 7-10 days. Vital Signs Vital signs: Initial Vital Signs Temperature 98.8 F 07/18/23 18:41 Temperature Source Temporal Artery Scan 07/18/23 18:41 Pulse Rate 88 07/18/23 18:41 Pulse Rhythm Regular 07/18/23 18:41 Respiratory Rate 18 07/18/23 18:41 Blood Pressure 117/79 07/18/23 18:41 Blood Pressure Mean 91 07/18/23 18:41 Blood Pressure Position Sitting 07/18/23 18:41 Pulse Oximetry 99 07/18/23 18:41 Oxygen Delivery Method Room Air 07/18/23 18:41 Vital Signs Temperature 98.8 F 07/18/23 18:41 Pulse Rate 88 07/18/23 18:41 Respiratory Rate 18 07/18/23 18:41 Blood Pressure 117/79 07/18/23 18:41 Pulse Oximetry 99 07/18/23 18:41 Oxygen Delivery Method Room Air 07/18/23 18:41 Temperature 98.8 F 07/18/23 18:41 Pulse Rate 88 07/18/23 18:41 Respiratory Rate 18 07/18/23 18:41 Blood Pressure 117/79 07/18/23 18:41 Pulse Oximetry 99 07/18/23 18:41 Oxygen Delivery Method Room Air 07/18/23 18:41 Medical Decision Making Lab Data Labs: Lab Results 07/18/23 Range/Units 19:00 Group A Strep DNA NOT DETECTED (Not Detectd) Discharge Plan Discharge Clinical Impression: Viral infection Patient Disposition: Home, Self-Care Condition: Stable Instructions: Viral Syndrome (ED) Additional Instructions: Ibuprofen or Tylenol as needed. See her primary doctor if no improvement over the next 7-10 days, return at any time for significant worsening. Prescriptions: No Action valacyclovir 1 gram tablet 1,000 mg PO DAILY Hold Instructions: patient taking different medication in place of this DHA 200 mg capsule PO cholecalciferol (vitamin D3) 25 mcg (1,000 unit) capsule 25 mcg PO QDAY levothyroxine 75 mcg tablet 75 mcg PO DAILY Patient Comments: 75mg 3x per week, 150mg 4x per week escitalopram oxalate 20 mg tablet 40 mg PO DAILY metoclopramide HCl [Reglan] 10 mg tablet 10 mg PO Q6H PRN (Reason: nausea and vomiting) Qty: 7 0RF docusate sodium 100 mg Capsule 100 mg PO DAILY Qty: 90 0RF Rx Instructions: Take 1-2 tablets daily as needed for constipation. ibuprofen 600 mg Tablet 600 mg PO Q6H PRN (Reason: Pain) Qty: 90 0RF Follow Up/Referrals: Natalee Marquis DO [Primary Care Provider] - Stand Alone Forms: [employer] Info Instructions
[2023-07-18 20:09] LABS: Strep A DNA Probe* NOT DETECTED (Not Detectd)
[2023-07-18 20:26] VITALS: BP 115/74; PULSE 80; RESP 18; TEMP 36.7; O2SAT 99
== END 2023-07-18 20:27 | disposition home or self-care (01) ==
PROVIDERS: Emergency Provider Emergency Medicine; PCP Family Medicine
DX: B34.9 Viral infection, unspecified (principal)
CPT/HCPCS: 87651; 99282; 99284

== ENCOUNTER 2023-11-01 10:39 | Outpatient (CLI) | payer MEDICAID, SELFPAY ==
--- OUTSIDE RECORDS SUMMARY | 2023-11-01 15:32 | XMS_ITS | Clinical Summary ---
Author Organization [facility] Address [place], [place] [address] Care Team Providers Care Analytics Director Name Role Phone Kandis Natalee Marlee MORTON Primary Care Provider [phone] Allergies Active Allergy Reactions Criticality Noted Date Comments Cefprozil Hives 11/02/2006 Sulfa (Sulfonamide Antibiotics) Hives 04/2006 Medications Medication Sig Dispensed Refills Start Date End Date Status cholecalciferol (Vitamin D) 1,000 unit capsuleIndications:A nxiety Take 1 Capsule (1,000 units) by mouth once daily. 90 Capsule 3 10/19/2021 Active valACYclovir (VALTREX) 1 gram tabletIndications:HS V infection TAKE 1 TABLET BY MOUTH DAILY 90 Tablet 2 01/15/2023 Active escitalopram oxalate (LEXAPRO) 20 mg tabletIndications:An xiety TAKE 1 TABLET(20 MG) BY MOUTH AT BEDTIME 90 Tablet 1 06/05/2023 Active vit 93/iron fum/folic ( FORMULA ORAL) Take by mouth. 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 90 Tablet 3 08/03/2023 Active Active Problems Problem Noted Date Diagnosed Date Pyelectasis of fetus on ultrasound 09/02 Hypothyroidism affecting in third trim lelo 09/20/2022 History of intrauterine grow th restriction in prior , currently 09/20/2022 Anxiety during 09/20/2022 Pap smear for cervical cancer screening 05/05/19 23 Overview: 05/2022 NIL. Plan: Pap/HPV due 05/2025. [...] TREPONEPALLI Negative RUBELLAIGG 7.49 Positive HBSAG Negative [id number] Non Reactive CHLAMYDIAPRB Negative NGONORRPROBE Negative Allergies [...] - Scheduled delivery: - Preferred delivery location: [facility] PRIMARY DIAGNOSIS: 23 y.o. Estimated Date of Delivery: 07/18/19 IUGR LAST GROWTH: 03/07/19=21% 06/15/19=3% ECHO: REFERRING PHYSICIAN/PHONE/LAST UPDATE: Natalee Marquis D.O. [phone] Primary MD approves scheduling of recommended ultrasounds/testing: [...] place 09/15/2012 07/23/2014 Overview: removed 07/12/13 Routine or child health check 11/02/2006 07/23/2014 Encounters Date Type Department Care Team Description 09/16/2023 10:25 AM CDT Office Visit [facility] [address] [place] [address] Natalee Marquis DO Depression; Thyroid Problem (TSH ) 09/16/2023 Travel 08/30/2023 11:00 AM CDT Phone Office Visit [address] [phone] [place] Forbes [facility] Visit; Telehealth 08/30/2023 Travel 08/05/2023 3:30 PM CDT Phone Office Visit [address] [phone] Angeles Forbes, [facility] Visit; Telehealth; Trmt Plan 08/03/2023 9:10 AM CDT Office Visit [facility] [address] [place] [address] Natalee Marquis DO Depression; Medication Management (levothyroxine) 08/03/2023 Travel from Last 3 Months Immunizations Name Administration Dates Next Due DT (Age < 7 years) 06/18/1998 DTP 06/18/1998,03/31/1998,01/24/1998 DTaP 11/22/2002,06/12/1999 HIB PRP-T (ActHIB,Hiberix) 06/12/1999,,03/31/1998,01/24 HPV 9 (Gardasil 9) 02/08/2013,05/17/2012, 010 Hepatitis A (Peds) 03/05/2015,07/23/2014 Hepatitis B (Peds) 11/02/2006, 9,06/18/1998,01/24 Hepatitis B, Unspecified 11/02/2006,0906/1998,06/18/1998,01/24 Hib Conjugate, Unspecified 06/12/1999,,03/31/1998,01/24 Human Papilloma Virus Vaccine 02/08/2013, 013,02/23/2010 Inactivated Polio Vaccine 11/02/2006,,06/12/1999,03/31,01/24/1998 Influenza A (H1N1), Inactivated 03/13/2009 Influenza A (H1N1), Inactiva anhsul (Age >=3 Years) 03/13/2009 Influenza, IIV3 (Age 6-35 mos) 03/13/2009 Influenza, IIV3 (Age >=3 years) 04/21/2013,03/13 Influenza, IIV4 01/24/2023,,12/18/2019,01/02,12/15/2017,01/31/2014 MMR 11/02/2006,11/22/2002,03/03/1999 Meningococcal Vaccine (Menveo) 07/23/2014 Td [...] Given: Yes Alcohol Use Standard Drinks/Week Comments Yes 0 (1 standard drink = 0.6 oz pur e alcohol) PHQ-2 Answer Date Recorded PHQ-2 TOTAL SCORE 1 09/16/2023 Social Connections Answer Date Recorded Frequency of [...] Outcome GA Total Labor Labor/2nd/3rd Weight Sex Type Anes PTL Meche A1 A5 Name Clin SAB 018 Term 40w 5d M C-Sec tion Living 020 Term 38w 4d F C-Sec tion Living Comments:asymmetric fe kerry growth restriction, saw perinatology. Had repeat C/S 023 Term 39w 2d M C-Sec tion Living Last Filed Vital Signs Vital Sign Reading Time Taken Comments Blood Pressure 109/73 09/16/2023 10:35 AM CDT Pulse 68 09/16/2023 10:35 AM CDT Temperature 36.5 ??C (97.7 ??F) 06/06/2023 3:12 PM CS T Respiratory Rate 14 05/15/2023 12:14 PM EMC STORAGE ARCHITECT Oxygen Saturation 99% 09/16/2023 10:35 AM CDT Inhaled Oxygen Concentration - - Weight 64.5 kg (142 lb 3.2 oz) 09/16/2023 10:35 AM CDT Height 160.7 cm (5' 3.25) 11/05/2020 2:48 PM CD T Body Mass Index 24.99 11/05/2020 2:48 PM CDT Plan of Treatment Health Maintenance Due Date Last Done Comments BMI (ht and wt on same day) for age 18+ 11/05/2021 11/05/2020, 06/23/2020, 06/09/2020, Additional history exists COVID-19 vaccine series (2022- season) 2022 Influenza for age 9-49 12/04/2023 , 01/08/2021, 12/18/2019, Additional history exists Depression screening for age 12+ 09/15/2024 09/16/2023, 08/05/2023, 08/03/2023, Additional history exists Pap test for age [...] Procedure Name Priority Date/Time Associated Diagnosis Comments TSH Routine 09/16/2023 11:06 AM CDT Hypothyroidism (acquired) TSH Routine 08/03/2023 10:19 AM CDT Hypothyroidism (acquired) VITAMIN D 25 (DEFICIENCY) Routine 08/03/2023 10:19 AM CDT Depression, recurrent (HC) OIL HEATERMAN THIN PREP PAP SCREEN IMAGED Routine 05/19/2022 9:16 AM EMC STORAGE ARCHITECT Cervical cancer screening LC HIV-1/O/2, 4TH GENERATION Routine 04/20/2022 9:49 AM EMC STORAGE ARCHITECT Encounter for care in first trimester of first EXPOSURE (BBF) ANTI HCV STAT 12/29/2017 11:13 PM CDT from Last 3 Months or Most Recently Relevant to Health Maintenance Results * TSH (09/16/2023 11:06 AM CDT) Only the most recent of2 resultswithin the time period is included. TSH 3.13 0.27 - 4.20 uIU/mL 09/16/2023 7:12 PM CDT [facility] Blood BLOOD SPECIMEN / Unknown Venipuncture / Unknown 09/16/2023 11:06 AM CDT 09/16/2023 11:07 AM CDT Narrative [facility] - 09/16/2023 7:12 PM CDT In Adults, TSH values between 5.00 and 10.00 uIU/ml do not necessarily indicate the presence of Hypothyroidism. Correlation with clinical findings such as presence of goiter and/or Thyroperoxidase (TPO) Antibody may be helpful. For more information please refer to JACKIE 2004; 291: 228-238. Natalee Marquis DO CHEMISTRY [facility] [address] [place] [address], * VITAMIN D 25 (DEFICIENCY) (08/03/2023 10:19 AM CDT) VITAMIN D TOTAL 38.0 20.0 - 80.0 ng/mL 08/03/2023 10:37 PM CDT [facility] Blood BLOOD SPECIMEN / Unknown Venipuncture / Unknown 08/03/2023 10:19 AM CDT 08/03/2023 10:20 AM CDT Narrative [facility] - 08/03/2023 10:37 PM CDT ? Vitamin D Status Deficiency: ? <20 ng/mL Insufficiency: ?20-29 ng/mL Sufficiency: ?30-80 ng/mL Possible Toxicity: ??>80 ng/mL Based on [place] of Medicine recommendations Biotin supplements may cause clinically significant interference for this test assay. ??If interference is suspected, it is strongly recommended that biotin is discontinued for at least one week prior to retesting. Natalee Marquis DO SEND OUTS Performing Organization Address [facility] Co de Phone Number [facility] [address] * OIL HEATERMAN THIN PREP PAP SCREEN IMAGED (05/19/2022 9:16 AM EMC STORAGE ARCHITECT) Pathologist [facility] Case Report Gynecologic Cytology Report ? Case: [id number] ? Authorizing Provider: ??Natalee Marquis DO ?Collected: ? 05/19/2022 0916 ? Ordering Location: ? [facility] ?? Received: ?05/19/2022 1013 ? Clinic ? First Screen: ?Bacangelica, Joss ? Specimen: ?OIL HEATERMAN ThinPrep Vial Screening, Cervical ? 06/03/2022 7:05 PM [facility] STORAGE ARCHITECT [facility] INTERPRETATION/ RESULT NEGATIVE FOR INTRAEPITHELIAL LESION OR MALIGNANCY (NIL) (none) 06/03/2022 7:05 PM EMC STORAGE ARCHITECT [facility] NISM(S) Shift in marilynn suggestive of bacterial vaginosis 06/03/2022 7:05 PM EMC STORAGE ARCHITECT [facility] SPECIMEN ADEQUACY Satisfactory for evaluation No endocervical component seen in a patient 06/03/2022 7:05 PM EMC STORAGE ARCHITECT [facility] LABORAT[facility] Date of LMP 02/20/22 06/03/2022 7:05 PM EMC STORAGE ARCHITECT [facility] Last Pap Date 02/07/19 06/03/2022 7:05 PM EMC STORAGE ARCHITECT [facility] Last Pap Result NIL 7:05 PM E[facility] STORAGE ARCHITECT [facility] Abnormal Pap or Hestand Bx in last 5 years No 06/03/2022 7:05 PM [facility] STORAGE ARCHITECT [facility] Menstrual Status 06/03/2022 7:05 PM EMC STORAGE ARCHITECT [facility] Hestand Bx Done Today No 06/03/2022 7:05 PM EMC STORAGE ARCHITECT [facility] Additional Information None given 06/03/2022 7:05 PM EMC STORAGE ARCHITECT [facility] Comment: Cytology is screened at [facility] - [address], [place] [address] and [facility] - [address] [place] [address], [place] [address] and [facility] - [address] [place] [address] Interpreted at [facility] - [address], [place] [address] Automated Review Successful 06/03/2022 7:05 PM EMC STORAGE ARCHITECT [facility] Comment:Specimen processed s uccessfully by automated copper tapper device, Thin[employer] Imaging System, [employer] Note The pap test is a screening technique, not a diagnostic procedure. It is used primarily to screen for squamous cancers and precursor lesions. Published studies have shown that it is subject to both false negative and false positive results. The pap test should not be used as the sole means to diagnose or exclude pre-malignant and malignant lesions. 06/03/2022 7:05 PM EMC STORAGE ARCHITECT [facility] Other (Cervical) Non-Blood / Unknown 05/19/2022 9:16 AM EMC STORAGE ARCHITECT 05/19/2022 10:13 AM EMC STORAGE ARCHITECT Natalee Marquis DO PATHOLOGY/CYTOLOGY [facility] [address] [place] [address], [place] * LC HIV-1/O/2, 4TH GENERATION (04/20/2022 9:49 AM EMC STORAGE ARCHITECT) HIV Scr 4th Gen Non Reactive Non Reactive 04/22/2022 9:06 PM EMC STORAGE ARCHITECT [facility] Comment: HIV Negative HIV-1/HIV-2 antibodies and HIV-1 p24 antigen were NOT detected. There is no laboratory evidence of HIV infection. Blood BLOOD SPECIMEN / Unknown Venipuncture / Unknown 04/20/2022 9:49 AM EMC STORAGE ARCHITECT 04/20/2022 9:51 AM EMC STORAGE ARCHITECT N[facility]ative [facility] - 04/22/2022 9:06 PM EMC STORAGE ARCHITECT Performed at: ??01 - [address] ??[id number] Commercial Sales Manager: Antoni Carrillo MD, Phone: ??[phone] Natalee Marquis DO LABORATORY [facility] ([facility]) [address] [place] [address] * Patient Source ANTI HCV (12/29/2017 11:13 PM CDT) HEPATITIS C ANTIBODY Non-React chel Non-React chel 12/30/2017 4:28 PM CDT [facility] Comment:Antibodies to HCV no t detected; does not exclude the possibility of exposure to HCV. Blood BLOOD SPECIMEN / Unknown Venipuncture / Unknown 12/29/2017 11:13 PM CDT 12/29/2017 11:23 PM CDT Lzu Mandujano MOLDED PARTS INSPECTOR SEND OUTS [facility] [address] [place] [address], from Last 3 Months or Most Recently Relevant to Health Maintenance Advance Directives * Full Code (Latest Code Status on File) Date Activated Date Inactivated Comments 04/19/2013 5:58 PM 04/23/2013 5:33 PM Care Teams Analytics Director Relationship Specialty Start Date End Date Natalee Marquis DO [address] [place] [address] PCP - General Family Practice 08/24/18
== END 2023-11-01 10:40 | disposition home or self-care (01) ==
LOC: NFLDREF 15:29
PROVIDERS: PCP Family Medicine; Referring Provider Family Medicine; Visit Provider Nurse Practitioner Family
DX: N39.0 Urinary tract infection, site not specified (principal); N30.01 Acute cystitis with hematuria
CPT/HCPCS: 87086; 87186